=== PATIENT | female | born 1950 | race Caucasian/White ===

== ENCOUNTER 2019-06-14 09:08 | Emergency (ER) | payer MEDICARE, SELFPAY ==
--- NOTE | ~2019-06-14 | XR_ITS ---
EXAMINATION: XR chest 2V DATE: 06/14/2019 10:11 INDICATION: Cough. Chills. TECHNIQUE: Frontal and lateral views of the chest were obtained. COMPARISON: Chest 2 views 11/21/2017, CT abdomen and pelvis 11/29/2018 FINDINGS: There is chronic mild elevation of right hemidiaphragm. There are airspace opacities in lef t lower lobe with air bronchograms. No pleural effusion or pneumothorax. The heart size is normal. Gallo rgical clips in the right upper quadrant are likely from cholecystectomy. IMPRESSION: 1. Airspace opacities in left lower lobe, consistent with pneumonia. Reviewed, dictated and finalized at location A. UTIVE RELATIONS SPECIALIST
--- NOTE | 2019-06-14 09:28 | ED.GENADULT ---
HPI - General Adult General Chief complaint: Unspecified Stated complaint: v/d/bradford Time Seen by Provider: 06/14/19 09:24 Source: patient and RN notes reviewed History of Present Illness HPI narrative: Pt is a 68 y/o female presenting to the ED c/o cough. Pt reports she started experiencing a productive cough with yellow phlegm recently. Pt also reports BRADFORD, rt ear ache, ST, sinus pain, SOB, fatigue, chills, and generalized myalgia, but denies wheezing or CP. Pt states she did have N/D and diarrhea on 06/09 that resolved the next day. Pt notes she has Hx's of Asthma, PNA, and seasonal allergies. Pt denies any known positive sick contact. Onset (ago): unknown Associated symptoms: headaches, malaise, shortness of breath and other (Rt ear ache; ST; sinus pain; chills; generalized myalgia) Treatments prior to arrival: none Related Data Allergies Allergy/AdvReac Type Severity Reaction Status Date / Time hydrocodone Allergy Mild itching Verified 07/13/16 08:09 latex Allergy Unknown Other Verified 11/19/18 09:11 MOXIFLOXACIN HCL Allergy Unknown Nausea and Uncoded 11/19/18 09:11 Vomiting Review of Systems Review of Systems: All systems reviewed & are unremarkable except as noted in HPI and below Constitutional: Constitutional: Reports chills and Reports fatigue ENT: Reports otalgia (Rt), Reports sinus pain and Reports sore throat Cardiovascular: Cardiovascular: Denies chest pain Respiratory: Respiratory: Reports dyspnea and Denies wheezing Gastrointestinal: Gastrointestinal: Reports diarrhea (Resolved), Reports nausea (Resolved) and Reports vomiting (Resolved) Musculoskeletal: Musculoskeletal: Reports myalgias (Generalized) PMFSH Past Medical History Medical History Arm fracture Asthma Bronchitis Fibrocystic breast GERD (gastroesophageal reflux disease) Rectal polyp Surgical History Surgical History H/O mastectomy H/O tubal ligation History of History of cholecystectomy History of tonsillectomy Social History Social History Second hand tobacco smoke exposure: Yes Exam Const: General: healthy appearing, no acute distress and alert Nutritional Appearance: well nourished HENMT: Ears: TM's normal bilaterally and EAC's normal Mouth: Yes lip normal Eyes: Conjunctivae: conjunctivae normal Resp: Effort & Inspection: normal respiratory effort Auscultation: clear to auscultation bilaterally Cardio: Rate: regular rate Rhythm: regular rhythm Back/Spine/Pelvis: Other: Full ROM Skin: General skin exam: normal color Other: Warm; Dry Neuro: General: patient oriented x3 Speech: normal speech Extrem: General: full ROM Psych: Mental Status: mental status grossly normal Affect: normal affect Course Vital Signs Vital signs: Vital Signs Pulse Rate 108 H 06/14/19 09:31 Respiratory Rate 18 06/14/19 09:31 Blood Pressure 117/69 06/14/19 09:31 Pulse Oximetry 98 06/14/19 09:31 Temperature 36.6 C 06/14/19 12:26 Pulse Rate 76 06/14/19 12:26 Respiratory Rate 18 06/14/19 12:26 Blood Pressure 120/58 L 06/14/19 12:26 Pulse Oximetry 98 06/14/19 12:26 Medical Decision Making Differential Diagnosis Differential Diagnosis: Asthma exacerbation, Pneumonia, bronchitis, other Xray shows LLL infiltrate. Mild elevation in WBCs. She will need treatment for pneumonia. Breathing improved with nebulizer treatment. vitals and labs otherwise reassuring. She should be appropriate for outpatient tretar. Medical Records Medical records reviewed: Yes I reviewed the patient's medical records. Vital Signs Vital Signs: Vital Signs Pulse Rate 108 H 06/14/19 09:31 Respiratory Rate 18 06/14/19 09:31 Blood Pressure 117/69 06/14/19 09:31 Pulse Oximetry 98 06/14/19 09:31 Temperature 36.6 C 06/14/19 12:26 Pulse Rate 76 06/14/19 12:26 Respirat
--- NOTE | 2019-06-14 09:30 | PC.NURSE ---
Patient was taken to restroom on the way back to her room to provide urine sample
[2019-06-14 09:31] VITALS: BP 117/69; PULSE 108; RESP 18; O2SAT 98
[2019-06-14 09:39] VITALS: PULSE 80; RESP 20
[2019-06-14] MEDS: ALBUTEROL SULFATE NEB 2.5 MG/0.5 ML INH 5 MG INHALATION (09:50)
[2019-06-14 11:00] VITALS: BP 113/96; PULSE 76; RESP 20; O2SAT 96
[2019-06-14 11:28] LABS: Basophils Absolute Auto 0.1 K/mm3 (0.0-0.1); Basophils Percent Auto 0.4 % (0.2-1.2); Eosinophils Absolute Auto 0.1 K/mm3 (0-0.3); Eosinophils Percent Auto 0.9 % (0-4.4); Hematocrit 39.4 % (37.0-47.0); Hemoglobin 12.7 g/dL (12.0-15.0); Immature Granulocyte Absolute 0.05 K/mm3 (0.00-0.031); Immature Granulocyte Percent A 0.4 % (0-0.5); Lymphocytes Absolute Auto 1.05 K/mm3 (0.9-3.2); Lymphocytes Percent Auto 8.6 % (18.3-44.2); Mean Corpuscular HGB Conc 32.2 g/dl (32-36); Mean Corpuscular Hemoglobin 32.1 pg (26-34); Mean Corpuscular Volume 99.5 fl (80-100); Mean Platelet Volume 11.4 fl (7.4-10.4); Monocytes Absolute Auto 0.8 K/mm3 (0.1-0.6); Monocytes Percent Auto 6.5 % (2.6-8.5); Neutrophils Absolute Auto 10.2 K/mm3 (1.3-6.7); Neutrophils Percent Auto 83.2 % (45.5-73.1); Platelet Count Result 235 k/mm3 (150-375); Red Blood Count 3.96 M/mm3 (4.2-5.4); Red Cell Distribution Width 13.1 % (11.5-14.5); White Blood Count 12.3 K/mm3 (4.5-10.0)
[2019-06-14 11:59] LABS: Blood Urea Nitrogen 9 mg/dL (7-17); Calcium 8.5 mg/dL (8.4-10.2); Carbon Dioxide 27 mmol/L (22-30); Chloride 103 mmol/L (98-107); Estimated CRCL calculation 53 ml/min; Estimated Glomerular Filt Rate > 60; Glucose 111 mg/dL (65-105); Sodium 138 mmol/L (137-145)
[2019-06-14] MEDS: AMOXICILLIN/CLAVULANATE K 875-125 MG TAB 1 TABLET PO (12:15)
[2019-06-14] MEDS: AZITHROMYCIN 250 MG TABLET 500 MG PO (12:15)
[2019-06-14 12:16] VITALS: BP 114/56; PULSE 77; RESP 18; O2SAT 99
[2019-06-14 12:26] VITALS: BP 120/58; PULSE 76; RESP 18; TEMP 36.6; O2SAT 98
== END 2019-06-14 12:35 | disposition home or self-care (01) ==
PROVIDERS: Emergency Provider Emergency Medicine; PCP Emergency Medicine
DX: J18.1 Lobar pneumonia, unspecified organism (principal); J45.909 Unspecified asthma, uncomplicated; K21.9 Gastro-esophageal reflux disease without esophagitis; Z87.19 Personal history of other diseases of the digestive system
CPT/HCPCS: 36415; 71046; 80048; 85025; 87804; 94640; 99283; 99284; A9270

== ENCOUNTER 2019-11-25 13:46 | Outpatient (CLI) | payer MEDICARE, SELFPAY ==
--- NOTE | ~2019-11-25 | DEXA_ITS ---
Bone Density Report Name: Yamila Peter Age: 69 Sex: Female Ethnicity: White Date of : 1950 Indication: postmenopausal; parental hip fracture; height loss; asthma or emphysema; Referring Provider: LEXII VANCE Study: Bone densitometry was performed. Exam Date: November 25, 2019 Accession number: [id number] Bone Density: Region BMD T-score Z-score Classification AP Spine (L1-L4) 1.056 0.1 2.1 Normal Femoral Neck (Left) 0.651 -1.8 0.0 Osteopenia Total Hip (Left) 0.775 -1.4 0.1 Osteopenia Total Hip Bilateral Avg 0.784 -1.3 0.2 Osteopenia Femoral Neck (Right) 0.701 -1.3 0.4 Osteopenia Total Hip (Right) 0.793 -1.2 0.2 Osteopenia World Health Organization criteria for BMD impression classify patients as: Normal (T-score at or above -1.0), Osteopenia (T-score between -1.0 and -2.5), or Osteoporosis (T-score at or below -2.5). 10-year Fracture Risk(1): Major Osteoporotic Fracture 17% Hip Fracture 2.9% Reported Risk Factors: [place] (), Neck BMD=0.651, BMI=27.9, parental fracture (1) FRAX(R) Version 3.08. Fracture probability calculated for an untreated patient. Fracture probability may be lower if the patient has received treatment. Clinical Information Provided by Patient: Parent has had a hip fracture Has used the following medications: Vitamin D, Calcium Has the following medical conditions: Asthma or Emphysema Patient maximum height was 64.5 Menopause Age: 42 Drinks caffeinated beverages Onset of menses at age 13 Number of children 1 Impression: The patient has low bone mass, based on the Left Femoral Neck T-score. The patient has an estimated ten-year risk of hip fracture of 2.9% and an estimated ten-year risk of major fracture of 17%, based on the WHO FRAX algorithm. The patient has risk factors, including: parental hip fracture. Discussion: BONE DENSITY IS LOW AT ONE OR MORE SKELETAL SITES. This patient's lowest T-score is low at one or more skeletal sites. It meets the World Health Organization's (WHO) criteria for ?low bone mass? (T-score between -1.0 and -2.5). The patient's 10-year risk of fracture as calculated by FRAX is less than the threshold where pharmacological therapy is recommended by the National Osteoporosis Foundation (NOF). However, all treatment decisions require clinical judgment and consideration of individual patient factors, including patient preferences, comorbidities, previous drug use, risk factors not captured in the FRAX model (e.g., frailty, falls, vitamin D deficiency, increased bone turnover, interval significant decline in bone density) and possible under or overestimation of fracture risk by FRAX. The patient should follow a healthful lifestyle (good nutrition with adequate calcium and vitamin D, and appropriate weight-bearing exercise). Follow-U
== END 2019-11-25 13:47 | disposition home or self-care (01) ==
LOC: ANHIMG 13:47
PROVIDERS: PCP Emergency Medicine; Visit Provider Obstetrics & Gynecology Gynecology
DX: Z78.0 Asymptomatic menopausal state (principal); M85.852 Other specified disorders of bone density and structure, left thigh; M85.851 Other specified disorders of bone density and structure, right thigh
CPT/HCPCS: 77080

== ENCOUNTER 2020-08-01 08:24 | Emergency (ER) | payer MEDICARE, SELFPAY ==
--- NOTE | ~2020-08-01 | CT_ITS ---
CT chest high resolution w con DATE: 08/01/2020 10:50 INDICATION: Shortness of breath TECHNIQUE: High-resolution CT scan with 75 cc Omnipaque 350 intravenous contrast material. Exam dose: 131.92 mGy-cm total exam DLP. COMPARISON: 08/01/2020 2 view chest June 14, 2016 CT chest high resolution scan FINDINGS: Heart size is normal. No pericardial or pleural effusion. No thoracic aortic aneurysm or di ssection. There is old pulmonary granulomatous disease including calcified fibroadenomas. There is prominent focal consolidation anterior segment of the right upper lobe with air bronchograms . There is patchy areas of consolidation with air bronchograms in both lower lobes as well. Status post cholecystectomy. Occasional hepatic cysts. Prominent degenerative disease at C6-7 and C7-T1. No suspicious osteolytic or osteoblastic lesions are identified. IMPRESSION: Right upper and bilateral lower lobe patchy consolidation suggesting bilateral pneumonia Reviewed, dictated and finalized at Location A. Reviewed, dictated and finalized at location A. IMPRESSION: Right upper and bilateral lower lobe patchy consolidation suggestin g bilateral pneumonia
--- NOTE | ~2020-08-01 | XR_ITS ---
XR chest 2V DATE: 08/01/2020 08:53 INDICATION: Shortness of breath. History of asthma. Patient is recovering from food poisoning. TECHNIQUE: PA and lateral views COMPARISON: June 14, 2019 PA and lateral chest FINDINGS: Chronic moderate elevation of the right leaf of the diaphragm. There is evidence of patchy consolidation or mass density in the right upper lobe. There is mild bila teral lower lung infiltrate and/or atelectasis. Normal heart size. No pleural effusion or pulmonary vascular congestion or pneumothorax. Status post cholecystectomy. Thoracic and lumbar scoliosis. Diffuse osteopenia. IMPRESSION: Patchy consolidation or mass density, right upper lobe and bilateral lower lung infiltrat e and/atelectasis Continued short-term radiographic follow-up is recommended to ensure clearing and to exclude any poss ible pulmonary mass lesion Chronic moderate elevation right diaphragm Status post cholecystectomy Reviewed, dictated and finalized at location A. IMPRESSION: Patchy consolidation or mass density, right upper lobe and bilatera l lower lung infiltrate and/atelectasis Continued short-term radiographic follow-up is recommended to ensure clearing a nd to exclude any possible pulmonary mass lesion Chronic moderate elevation right diaphragm Status post cholecystectomy
[2020-08-01 08:30] VITALS: BP 120/57; PULSE 104; RESP 22; TEMP 36.9; O2SAT 98
[2020-08-01 10:38] LABS: Basophils Percent Auto 0.3 % (0.2-1.2); Hemoglobin 11.6 g/dL (12.0-15.0); Immature Granulocyte Absolute 0.14 K/mm3 (0.00-0.031); Immature Granulocyte Percent A 1.3 % (0-0.5); Lymphocytes Absolute Auto 0.29 K/mm3 (0.9-3.2); Lymphocytes Percent Auto 2.7 % (18.3-44.2); Mean Corpuscular HGB Conc 33.1 g/dl (32-36); Mean Corpuscular Hemoglobin 33.9 pg (26-34); Mean Corpuscular Volume 102.3 fl (80-100); Mean Platelet Volume 10.9 fl (7.4-10.4); Monocytes Absolute Auto 0.7 K/mm3 (0.1-0.6); Monocytes Percent Auto 6.9 % (2.6-8.5); Neutrophils Absolute Auto 9.4 K/mm3 (1.3-6.7); Neutrophils Percent Auto 88.8 % (45.5-73.1); Nucleated Red Blood Cells Perc 0.2 % (0.0-0.2); Platelet Count Result 203 k/mm3 (150-375); Red Blood Count 3.42 M/mm3 (4.2-5.4); Red Cell Distribution Width 13.9 % (11.5-14.5); White Blood Count 10.6 K/mm3 (4.5-10.0)
[2020-08-01 10:49] LABS: Alanine Aminotransferase 46 U/L (4-35); Albumin Level 3.5 g/dL (3.5-5.1); Alkaline Phosphatase 56 U/L (38-126); Anion Gap 6 mmol/L (8-16); Aspartate Amino Transferase 39 U/L (14-36); Bilirubin,Total 0.4 mg/dL (0.2-1.3); Blood Urea Nitrogen 9 mg/dL (7-17); Calcium 8.2 mg/dL (8.4-10.2); Carbon Dioxide 30 mmol/L (22-30); Chloride 104 mmol/L (98-107); Estimated CRCL calculation 59 ml/min; Estimated Glomerular Filt Rate > 60; Glucose 115 mg/dL (65-105); Potassium 3.6 mmol/L (3.4-5.0); Sodium 140 mmol/L (137-145)
[2020-08-01 10:50] LABS: Estimated CRCL calculation 59 ml/min; Estimated Glomerular Filt Rate > 60
[2020-08-01 11:24] VITALS: BP 120/62; PULSE 94; RESP 18; O2SAT 97
--- NOTE | 2020-08-01 12:20 | ED.URI ---
HPI - URI/Sore Throat General Chief Complaint: Upper Respiratory Infection Stated Complaint: COLD SX Time Seen by Provider: 08/01/20 08:30 Source: patient and family Mode of arrival: ambulatory History of Present Illness HPI Narrative: 69-year-old with a history of COPD, seasonal allergies here with complaints of cough for past few days. Patient states that she recently returned from [facility]. Patient states that she has been taking prednisone with no relief. No history of fever or chills. Cough is nonproductive. Denies any chest pain. MD elicited complaint: cough Onset (ago): day(s) (5) Consistency: constant Severity: moderate Exacerbating factors: nothing Relieving factors: nothing Associated symptoms: denies other symptoms Related Data Allergies Allergy/AdvReac Type Severity Reaction Status Date / Time hydrocodone Allergy Mild itching Verified 07/13/16 08:09 latex Allergy Unknown Other Verified 11/19/18 09:11 MOXIFLOXACIN HCL Allergy Unknown Nausea and Uncoded 11/19/18 09:11 Vomiting Review of Systems Review of Systems: All systems reviewed & are unremarkable except as noted in HPI and below Constitutional: Constitutional: Reports no additional constitutional complaints Eyes: Eyes: Reports no additional eye complaints ENT: Reports system reviewed and no additional complaints, except as documented Cardiovascular: Cardiovascular: Reports no additional cardiovascular complaints Respiratory: Respiratory: Reports as per HPI Gastrointestinal: Gastrointestinal: Reports no additional gastrointestinal complaints Musculoskeletal: Musculoskeletal: Reports no additional musculoskeletal complaints Integumentary/Breasts: Skin/Breast: Reports system reviewed and no additional complaints, except as docu Neurologic: Reports system reviewed and no additional complaints, except as documented PMFSH Past Medical History Medical History (Updated 08/01/20 @ 12:39 by Maik Agustin MD) Arm fracture Asthma Bronchitis Fibrocystic breast GERD (gastroesophageal reflux disease) Rectal polyp Surgical History Surgical History H/O mastectomy H/O tubal ligation History of History of cholecystectomy History of tonsillectomy Social History Social History Second hand tobacco smoke exposure: Yes Gender identity (if verbalized by the patient): Female Exam Narrative: Exam Narrative: GENERAL: Well-appearing, well-nourished, and in no acute distress. HEAD: Normocephalic, atraumatic. EYES: PERRLA and EOMI.. NECK: Supple. CHEST: Clear to auscultation. No respiratory distress. HEART: Regular rate and rhythm. No murmur heard. Normal peripheral pulses. ABDOMEN: Soft, nontender, nondistended, normal active bowel sounds. EXTREMITIES: Normal range of motion. No edema. SKIN: Warm, dry, no rash. NEURO: No focal deficits. Alert and oriented x3. PSYCH: Normal mood and affect. Course Course Emergency Course: Form patient about her lab work, CT findings. Patient states that she cannot take Avelox as it causes severe gastritis. Advised her to continue prednisone and continue other home medications. Will will start her on doxycycline. Vital Signs Vital signs: Vital Signs Temperature 36.9 C 08/01/20 08:30 Pulse Rate 104 H 08/01/20 08:30 Respiratory Rate 22 H 08/01/20 08:30 Blood Pressure 120/57 L 08/01/20 08:30 Pulse Oximetry 98 08/01/20 08:30 Temperature 36.9 C 08/01/20 08:30 Pulse Rate 94 08/01/20 11:24 Respiratory Rate 18 08/01/20 11:24 Blood Pressure 120/62 08/01/20 11:24 Pulse Oximetry 97 08/01/20 11:24 MDM - URI/Sore Throat Lab Data Result diagrams: 08/01/20 10:24 08/01/20 10:39 Labs: Lab Results 08/01/20 08/01/20 08/01/20 Range/Units 10:24 10:24 10:39 WBC 10.6 H (4.5-10.0) K/mm3 RBC 3.42 L (4.2-5.4) M/mm3 H
== END 2020-08-01 13:12 | disposition home or self-care (01) ==
PROVIDERS: Emergency Provider Family Medicine; PCP Emergency Medicine
DX: J18.9 Pneumonia, unspecified organism (principal); J44.9 Chronic obstructive pulmonary disease, unspecified; K21.9 Gastro-esophageal reflux disease without esophagitis; Z87.19 Personal history of other diseases of the digestive system; Z90.10 Acquired absence of unspecified breast and nipple; Z77.22 Contact with and (suspected) exposure to environmental tobacco smoke (acute) (chronic)
CPT/HCPCS: 36415; 71046; 71260; 80053; 85025; 99284; Q9967

== ENCOUNTER 2020-08-31 08:51 | Outpatient (CLI) | payer MEDICARE, SELFPAY ==
--- NOTE | ~2020-08-31 | XR_ITS ---
EXAMINATION: XR chest 2V DATE: 08/31/2020 09:05 INDICATION: Pneumonia TECHNIQUE: PA and lateral views of the chest are obtained. COMPARISON: 08/01/2020 FINDINGS: There has been interval decrease in size of the previously described masslike opacity right upper lobe. There is no pleural effusion or pneumothorax. The cardiomediastinal silhouette is normal . There is levocurvature of the thoracic spine. Surgical clips in the right upper quadrant are likely from prior cholecystectomy. IMPRESSION: 1. Near complete resolution of the previously described right upper lobe opacity, consistent with res olving pneumonia. Reviewed, dictated and finalized at location A. IMPRESSION: 1. Near complete resolution of the previously described right upper lobe opacit y, consistent with resolving pneumonia.
== END 2020-08-31 08:52 | disposition home or self-care (01) ==
LOC: ANHIMG 08:56
PROVIDERS: PCP Emergency Medicine; Visit Provider Emergency Medicine
DX: J18.9 Pneumonia, unspecified organism (principal)
CPT/HCPCS: 71046

== ENCOUNTER 2021-06-11 09:05 | Emergency (ER) | payer MEDICARE, SELFPAY ==
--- NOTE | ~2021-06-11 | XR_ITS ---
EXAMINATION: XR chest 1V portable EXAM DATE: 06/11/2021 10:50 INDICATION: fever, cough X 4 Days. Nonsmoker, Hx Asthma . TECHNIQUE: Frontal and lateral projections of the chest obtained and reviewed. Comparison is made to prior examination from 08/31/2020. FINDINGS: Segmental wedge-shaped right upper lobe airspace disease, appearance is most consistent wi th focal bacterial pneumonia. Please clinically correlate. Follow-up recommended in one month to excl ude any underlying chronic process. There are cholecystectomy clips. Mild thoracolumbar scoliosis. IMPRESSION: Segmental right upper lobe airspace disease probably pneumonia. Follow-up recommended. Reviewed, dictated and finalized at location B. ICIAN ASST IMPRESSION: Segmental right upper lobe airspace disease probably pneumonia. Fo llow-up recommended.
[2021-06-11 09:24] VITALS: BP 140/68; PULSE 99; RESP 22; TEMP 36.6; O2SAT 99
[2021-06-11 10:56] VITALS: BP 123/71; PULSE 82; RESP 13; O2SAT 98
[2021-06-11 10:59] VITALS: PULSE 72
[2021-06-11 11:00] LABS: Basophils Absolute Auto 0.1 K/mm3 (0.0-0.1); Basophils Percent Auto 0.9 % (0.2-1.2); Eosinophils Absolute Auto 0.3 K/mm3 (0-0.3); Eosinophils Percent Auto 4.4 % (0-4.4); Hematocrit 39.3 % (37.0-47.0); Immature Granulocyte Absolute 0.02 K/mm3 (0.00-0.031); Immature Granulocyte Percent A 0.3 % (0-0.5); Lymphocytes Absolute Auto 0.68 K/mm3 (0.9-3.2); Lymphocytes Percent Auto 9.7 % (18.3-44.2); Mean Corpuscular HGB Conc 33.1 g/dl (32-36); Mean Corpuscular Hemoglobin 33.3 pg (26-34); Mean Corpuscular Volume 100.8 fl (80-100); Mean Platelet Volume 10.5 fl (7.4-10.4); Monocytes Absolute Auto 0.5 K/mm3 (0.1-0.6); Monocytes Percent Auto 7.7 % (2.6-8.5); Neutrophils Absolute Auto 5.4 K/mm3 (1.3-6.7); Platelet Count Result 214 k/mm3 (150-375); Red Cell Distribution Width 12.8 % (11.5-14.5)
[2021-06-11 11:05] LABS: Add Urine Microscopic? YES; Appearance Urine Clear (Clear); Bilirubin Urine Negative (Negative); Blood Urine 2+ (Negative); Color Urine Yellow (Yellow); Glucose Urine UA Negative (Negative); Ketones Urine Trace mg/dL (Negative); Leukocyte Esterase Ur Negative LEU/UL (Negative); Nitrate Urine Negative (Negative); Protein Urine Negative (Negative); Specific Grav Ur 1.015 (1.001-1.035); WBC Urine 0-3 /hpf
[2021-06-11 11:09] LABS: INR 1.1; Lactic Acid Reflex 1.1 mmol/L (0.7-2.1); Prothrombin Time 14.2 Seconds (11.1-14.7)
[2021-06-11 11:10] LABS: Partial Thromboplastin Time 37.3 SECONDS (22.3-36.8)
[2021-06-11 11:17] LABS: Alanine Aminotransferase 21 U/L (4-35); Albumin Level 4.2 g/dL (3.5-5.1); Alkaline Phosphatase 58 U/L (38-126); Anion Gap 11 mmol/L (8-16); Aspartate Amino Transferase 29 U/L (14-36); Bilirubin,Total 0.6 mg/dL (0.2-1.3); Blood Urea Nitrogen 12 mg/dL (7-17); Calcium 8.8 mg/dL (8.4-10.2); Carbon Dioxide 26 mmol/L (22-30); Chloride 99 mmol/L (98-107); Estimated CRCL calculation 49 ml/min; Estimated Glomerular Filt Rate > 60; Glucose 116 mg/dL (65-110); Lactate Dehydrogenase 317 U/L (313-618); Lipase 58 U/L (23-300); Potassium 3.6 mmol/L (3.4-5.0); Sodium 136 mmol/L (137-145)
--- NOTE | 2021-06-11 11:19 | ED.SOB ---
HPI - SOB/Dyspnea General Chief Complaint: Shortness of Breath/Dyspnea Stated Complaint: covid symptoms Time Seen by Provider: 06/11/21 10:39 Source: patient Mode of arrival: ambulatory Limitations: no limitations History of Present Illness HPI Narrative: This is a 70 year old female that presents to the ER for cold symptoms present over the last 4 days. Reports she started to have nausea and vomiting. Then she noted chills, headache, cough and congestion. She is COVID and influenza vaccinated. Reports shortness of breath and the cough is making her asthma flare. Reports chest pain with coughing. Denies lower extremity edema. Related Data Home Medications Medication Instructions Recorded Confirmed albuterol sulfate INHALATION 06/11/21 estradiol-norethindrone acet tablet 06/11/21 fluticasone furoate-vilanterol INHALATION 06/11/21 [Breo Ellipta] pantoprazole PO 06/11/21 Allergies Allergy/AdvReac Type Severity Reaction Status Date / Time hydrocodone Allergy Mild itching Verified 06/11/21 10:59 latex Allergy Unknown Other Verified 06/11/21 10:59 MOXIFLOXACIN HCL Allergy Unknown Nausea and Uncoded 06/11/21 10:59 Vomiting Review of Systems Review of Systems: CONSTITUTIONAL: Reports fever ENT: Reports congestion CARDIOVASCULAR: Reports chest pain. Denies edema. RESPIRATORY: Denies cough or dyspnea. GASTROINTESTINAL: Reports nausea, vomiting All systems reviewed & are unremarkable except as noted in HPI and below PMFSH Past Medical History Medical History (Updated 06/11/21 @ 13:35 by Tg Garnett PA-C) Arm fracture Asthma Bronchitis Fibrocystic breast GERD (gastroesophageal reflux disease) Rectal polyp Surgical History Surgical History H/O mastectomy H/O tubal ligation History of History of cholecystectomy History of tonsillectomy Social History Social History Second hand tobacco smoke exposure: Yes Gender identity (if verbalized by the patient): Female Exam Narrative: GENERAL: Well-appearing, well-nourished, and in no acute distress. HEAD: Normocephalic, atraumatic. EYES: EOMI. ENT: Nares clear, no rhinorrhea or epistaxis. Mucous membranes moist. Oropharynx without tonsillar hypertrophy exudate or other lesions. Bilateral TMs pearly roth non-bulging NECK: Supple. No adenopathy or masses. CHEST: Clear to auscultation. No respiratory distress. No wheezes rales or rhonchi HEART: Regular rate and rhythm. No murmur heard. Normal peripheral pulses. EXTREMITIES: Normal range of motion. No edema. SKIN: Warm, dry, no rash. NEURO: No focal deficits. Alert and oriented x3. PSYCH: Normal mood and affect Course Vital Signs Vital signs: Vital Signs Temperature 97.8 F 06/11/21 09:24 Pulse Rate 99 06/11/21 09:24 Respiratory Rate 22 H 06/11/21 09:24 Blood Pressure 140/68 06/11/21 09:24 Pulse Oximetry 99 06/11/21 09:24 Temperature 97.8 F 06/11/21 09:24 Pulse Rate 65 06/11/21 12:34 Respiratory Rate 18 06/11/21 12:34 Blood Pressure 109/63 06/11/21 12:34 Pulse Oximetry 95 06/11/21 12:34 MDM - SOB/Dyspnea MDM Narrative Medical decision making narrative: Patient presents to the emergency department for cold symptoms ongoing over the last 4 days. She is afebrile and nontoxic-appearing. Oxygen saturation has remained normal on room air. Vitals are stable. CBC is without leukocytosis. Lactic acid is not elevated. UA without evidence of infection. Covid and influenza swabs are negative. D-dimer elevated, but age-adjusted it is not elevated. Chest x-ray shows a right upper lobe airspace opacity consistent with pneumonia. Patient will be started on antibiotics and a couple more days of steroid for asthma exacerbation associated with this. She is stable and felt appropriate for further outpatient evaluation. She was given warnings to return to the E
[2021-06-11 11:49] LABS: D Dimer 0.64 ug/mL (<0.48)
[2021-06-11 11:53] LABS: CRP 14.6 mg/dL (<1.0)
[2021-06-11 11:56] LABS: Troponin I < 0.012 ng/mL (0.000-0.034)
[2021-06-11] MEDS: predniSONE 20 MG TABLET 40 MG PO (12:02)
[2021-06-11 12:34] VITALS: BP 109/63; PULSE 65; RESP 18; O2SAT 95
[2021-06-11 13:19] LABS: Influenza A QL RT-PCR Negative (Negative); Influenza B QL RT-PCR Negative (Negative)
[2021-06-11 13:29] LABS: SARS-CoV-2 RNA PCR Negative
[2021-06-11 14:17] VITALS: BP 107/60; PULSE 70; RESP 16; O2SAT 95
== END 2021-06-11 14:18 | disposition home or self-care (01) ==
PROVIDERS: Physician Assistant; Emergency Provider Emergency Medicine; PCP Emergency Medicine
DX: J18.9 Pneumonia, unspecified organism (principal); J45.901 Unspecified asthma with (acute) exacerbation; Z20.822 Contact with and (suspected) exposure to COVID-19; K21.9 Gastro-esophageal reflux disease without esophagitis; Z87.19 Personal history of other diseases of the digestive system; Z90.10 Acquired absence of unspecified breast and nipple; N60.19 Diffuse cystic mastopathy of unspecified breast; Z77.22 Contact with and (suspected) exposure to environmental tobacco smoke (acute) (chronic)
CPT/HCPCS: 36415; 71045; 80053; 81001; 82728; 83605; 83615; 83690; 84484; 85025; 85380; 85610; 85730; 86140; 87502; 96365; 96367; 99284; C9803; J0131; J0456; J0696; J7512; U0003; U0005

== ENCOUNTER 2021-07-28 09:03 | Outpatient (CLI) | payer MEDICARE, SELFPAY ==
--- NOTE | ~2021-07-28 | XR_ITS ---
XR chest 2V DATE: 07/28/2021 09:16 INDICATION: Pneumonia in June 2021. History of asthma. TECHNIQUE: PA and lateral views COMPARISON: June 11, 2021 portable AP chest 09/17/2020 PA and lateral chest FINDINGS: There is minimal residual infiltrate or atelectasis in the right upper lobe anterior segmen t, along the superior margin of the minor fissure, with considerable improvement of right upper lobe infiltrate since June 11, 2021. Mild to moderate elevation right leaf of diaphragm is again noted, chronic. Normal heart size. No hilar or mediastinal enlargement. No pleural effusion or pulmonary vascular congestion or pneumothorax. Status post cholecystectomy. Thoracic scoliosis. Osteopenia. IMPRESSION: Mild residual infiltrate or atelectasis, anterior segment, right upper lobe, significantl y improved since June 11, 2021 Reviewed, dictated and finalized at location A. IMPRESSION: Mild residual infiltrate or atelectasis, anterior segment, right up per lobe, significantly improved since June 11, 2021
== END 2021-07-28 09:04 | disposition home or self-care (01) ==
LOC: ANHIMG 09:06
PROVIDERS: PCP Emergency Medicine; Visit Provider Emergency Medicine
DX: J18.9 Pneumonia, unspecified organism (principal); R91.8 Other nonspecific abnormal finding of lung field
CPT/HCPCS: 71046

== ENCOUNTER 2022-01-06 09:36 | Outpatient (CLI) | payer MEDICARE, SELFPAY ==
--- NOTE | ~2022-01-06 | CT_ITS ---
EXAMINATION: CT chest high resolution [place] DATE: 01/06/2022 09:58 INDICATION: Chronic cough TECHNIQUE: Computed tomography (CT) of the chest was performed without intravenous contrast. The dose -length product (DLP) was 137.23 mGy-cm. Automated exposure control and iterative reconstruction tech [employer] were employed. COMPARISON: 08/01/2020 FINDINGS: The lungs are free of acute opacities. No pleural effusion or pneumothorax. No pathological ly enlarged thoracic lymph nodes are identified. The heart size is normal. Calcified pulmonary nodule s and calcified right hilar lymph nodes are consistent with old granulomatous disease. The gallbladde r is surgically absent. There is mild thoracic spondylosis. IMPRESSION: 1. No CT correlate for the patient's symptoms. Reviewed, dictated and finalized at location B.
== END 2022-01-06 09:37 | disposition home or self-care (01) ==
PROVIDERS: PCP Emergency Medicine
DX: R05.3 Chronic cough (principal)
CPT/HCPCS: 71250

== ENCOUNTER 2022-01-19 07:44 | Outpatient (CLI) | payer MEDICARE, SELFPAY ==
--- NOTE | ~2022-01-19 | CT_ITS ---
EXAMINATION: CT abdomen pelvis wo/w con DATE: 01/19/2022 08:28 INDICATION: Microhematuria TECHNIQUE: Computed tomography (CT) of the abdomen and pelvis was performed without and subsequently with 130 CC Omnipaque 350 intravenous contrast. Automated exposure control and iterative reconstructi on technique were employed. Exam dose: 970.94 mGy-cm total exam DLP. COMPARISON: 01/19/2022 KUB 11/29/2018 CT abdomen pelvis FINDINGS: The lung bases are clear of infiltrate or consolidation. Normal heart size. No pericardial or pleural effusion. There is hepatic flexure interposition between the diaphragm and liver. Status post cholecystectomy. No bile duct or pancreatic duct dilatation. Normal splenic size. Normal morphology of the adrenal glands. No renal mass lesion is detected. There is an approximately 3 x 5.3 mm nonobstructing calculus of the lower pole of the left kidney. No other urinary tract calculus is noted. The urinary bladder, uterus and adnexal areas are unremarkabl e. Normal caliber of the abdominal aorta with mild atherosclerotic calcification. No intraperitoneal or retroperitoneal or pelvic mass lesion or adenopathy or ascites. Normal appendix. Diverticulosis of the sigmoid colon; no CT evidence of diverticulitis. No bowel obstruction, bowel wa ll thickening, pneumatosis or intraperitoneal free air. Moderate loss of interspace height at L3-4 and L4-5. No suspicious osteolytic or osteoblastic lesions are noted. IMPRESSION: Nonobstructing lower pole left renal calculus Normal appendix Diverticulosis of sigmoid colon; no CT evidence of diverticulitis Status post cholecystectomy Reviewed, dictated and finalized at Location A. Reviewed, dictated and finalized at location B.
--- NOTE | ~2022-01-19 | XR_ITS ---
XR abdomen/kub 1V 01/19/2022 08:07 Indication: Microscopic hematuria Procedure: KUB Comparison: CT dated 01/19/2022 Findings: There is ar 5 mm stone in the lower pole of the left kidney. There are cholecystectomy clip s. Bowel gas pattern is nonobstructive. There are pelvic phleboliths. Mild dextroscoliosis of the tho racolumbar spine, partially visualized. Impression: 1: Left nephrolithiasis. Reviewed, dictated and finalized at location A. Impression: 1: Left nephrolithiasis.
[2022-01-19 08:12] LABS: Estimated Glomerular Filt Rate > 60
== END 2022-01-19 07:45 | disposition home or self-care (01) ==
PROVIDERS: PCP Emergency Medicine; Visit Provider Urology
DX: R31.29 Other microscopic hematuria (principal); N20.0 Calculus of kidney; K57.30 Diverticulosis of large intestine without perforation or abscess without bleeding; Z90.49 Acquired absence of other specified parts of digestive tract
CPT/HCPCS: 74018; 74178; Q9967

== ENCOUNTER → 2022-06-22 09:41 | Outpatient (CLI) | payer MEDICARE, SELFPAY ==
--- NOTE | ~2022-06-22 | CT_ITS ---
EXAMINATION: CT sinus wo con DATE: 06/22/2022 09:53 INDICATION: Chronic sinusitis TECHNIQUE: Computed tomography (CT) of the paranasal sinuses was performed without intravenous contra st. The dose-length product was 270.28 mGy-cm. COMPARISON: 06/14/2016 FINDINGS: There is mucosal thickening of the ethmoid sinuses with air-fluid levels. There is a mucous retention cyst of the right maxillary sinus. There is leftward nasal septal deviation. Small bilater al mastoid effusions. Leftward nasal septal deviation. Ostiomeatal units are patent. IMPRESSION: 1. Mild ethmoid sinusitis. Mucous retention cyst right maxillary antrum. Reviewed, dictated and finalized at location B. TRAFFIC MANAGER
== END ==
PROVIDERS: PCP Emergency Medicine; Visit Provider Otolaryngology
DX: J32.2 Chronic ethmoidal sinusitis (principal)
CPT/HCPCS: 70486

== ENCOUNTER 2022-06-27 09:27 | Emergency (ER) | payer MEDICARE, SELFPAY ==
--- NOTE | ~2022-06-27 | CT_ITS ---
EXAMINATION: CT soft tissue neck wo con DATE: 06/27/2022 10:42 INDICATION: Foreign body in throat. TECHNIQUE: Computed tomography (CT) of the neck was performed without intravenous contrast. Automated exposure control and iterative reconstruction technique were employed. The dose-length product was 4 77.57 mGy-cm. COMPARISON: Neck radiographs 06/27/2022 FINDINGS: There are no pathologically enlarged lymph nodes. There is a mucous retention cyst in right maxillary sinus. There is mild mucosal thickening in the paranasal sinuses. The mastoid air cells ar e normal. There is severe cervical spondylosis. IMPRESSION: 1. No foreign body. Reviewed, dictated and finalized at location A. E CUTTING SUPERVISOR IMPRESSION: 1. No foreign body.
--- NOTE | ~2022-06-27 | XR_ITS ---
XR soft tissue neck 06/27/2022 10:09 Indication: Possible foreign body in throat. Procedure: 3 views of the neck soft tissues Comparison: 03/19/2013 Findings: No prevertebral soft tissue abnormality. The epiglottis and area epiglottic folds are laura l. No significant abnormality of the adenoids or lingual tonsils. There are coarse thyroid cartilage calcifications. No foreign bodies are identified. No significant subglottic narrowing. Moderate cervi soledad spondylosis. Lung apices are normal. Impression: 1: No evidence for radiopaque foreign body. Reviewed, dictated and finalized at location B. SIT PLANNER Impression: 1: No evidence for radiopaque foreign body.
[2022-06-27 09:34] VITALS: BP 99/64; PULSE 71; RESP 18; TEMP 36.4; O2SAT 99
[2022-06-27 09:36] VITALS: BP 141/67; PULSE 68; RESP 18; TEMP 36.7; O2SAT 99
--- NOTE | 2022-06-27 09:51 | ED.SKABFB ---
HPI - Skin/Abscess/Foreign Bdy General Chief complaint: Skin/Abscess/Foreign Body Stated complaint: foreign body throat Time Seen by Provider: 06/27/22 09:37 Source: patient Mode of arrival: ambulatory Limitations: no limitations History of Present Illness HPI narrative: This is a 71-year-old female that presents to the emergency department for a possible foreign body in her throat. Reports when she woke up yesterday she had the sensation that there was something stuck in her throat. At lunchtime she was eating and one of her teeth fell out. Reports she has a bridge of her left lower molars and part of it is missing. She has continued to have sensation of foreign body. She has been able to eat and drink. Denies fever or sore throat. Related Data Home Medications Medication Instructions Recorded Confirmed albuterol sulfate 90 mcg/actuation inhalation 06/11/21 aerosol inhaler estradiol-norethindrone acet 1 tablet 06/11/21 mg-0.5 mg tablet fluticasone furoate 200 inhalation 06/11/21 mcg-vilanterol 25 mcg/dose inhalation powder (Breo Ellipta) pantoprazole 40 mg tablet,delayed PO 06/11/21 release Allergies Allergy/AdvReac Type Severity Reaction Status Date / Time hydrocodone Allergy Mild itching Verified 06/27/22 09:40 latex Allergy Unknown Other Verified 06/27/22 09:40 MOXIFLOXACIN HCL Allergy Unknown Nausea and Uncoded 06/27/22 09:40 Vomiting Review of Systems Review of Systems: CONSTITUTIONAL: Denies fever ENT: Denies sore throat, or dysphagia CARDIOVASCULAR: Denies chest pain RESPIRATORY: Denies dyspnea. GASTROINTESTINAL: Denies nausea, vomiting All systems reviewed & are unremarkable except as noted in HPI and below PMFSH Past Medical History Medical History (Updated 06/27/22 @ 10:56 by Tg Garnett PA-C) Arm fracture Asthma Bronchitis Fibrocystic breast GERD (gastroesophageal reflux disease) Rectal polyp Surgical History Surgical History H/O mastectomy H/O tubal ligation History of History of cholecystectomy History of tonsillectomy Social History Social History Second hand tobacco smoke exposure: Yes Gender identity (if verbalized by the patient): Female Exam Narrative: GENERAL: Well-appearing, well-nourished, and in no acute distress. HEAD: Normocephalic, atraumatic. EYES: EOMI. ENT: Nares clear, no rhinorrhea or epistaxis. Mucous membranes moist. Oropharynx without tonsillar hypertrophy exudate or other lesions. NECK: Supple. No adenopathy or masses. CHEST: Clear to auscultation. No respiratory distress. HEART: Regular rate and rhythm. EXTREMITIES: Normal range of motion. No edema. SKIN: Warm, dry, no rash. NEURO: No focal deficits. Alert and oriented x3. PSYCH: Normal mood and affect Course Course Emergency Course: Patient was updated on work-up and agrees with plan of care. Vital Signs Vital signs: Vital Signs Temperature 97.6 F 06/27/22 09:34 Pulse Rate 71 06/27/22 09:34 Respiratory Rate 18 06/27/22 09:34 Blood Pressure 99/64 L 06/27/22 09:34 Pulse Oximetry 99 06/27/22 09:34 Oxygen Delivery Room Air 06/27/22 09:34 Temperature 98.1 F 06/27/22 09:36 Pulse Rate 68 06/27/22 09:36 Respiratory Rate 18 06/27/22 09:36 Blood Pressure 141/67 H 06/27/22 09:36 Pulse Oximetry 99 06/27/22 09:36 Oxygen Delivery Room Air 06/27/22 09:36 MDM - Skin/Abscess/Foreign Bdy MDM Narrative Medical decision making narrative: Patient presents to the emergency department for a possible body in her throat. Reports she has had this sensation since yesterday. She is able to tolerate oral secretions. She has been able to eat and drink normally without any nausea or vomiting. Her airway is clear. I do not appreciate any foreign bodies on exam. X-ray soft tissue was obtained without evidence of foreign body.
[2022-06-27 11:10] VITALS: BP 120/69; PULSE 72; RESP 16; O2SAT 100
== END 2022-06-27 11:10 | disposition home or self-care (01) ==
PROVIDERS: Emergency Provider Physician Assistant; PCP Emergency Medicine
DX: R09.89 Other specified symptoms and signs involving the circulatory and respiratory systems (principal); J45.909 Unspecified asthma, uncomplicated; K21.9 Gastro-esophageal reflux disease without esophagitis
CPT/HCPCS: 70360; 70490; 99284

== ENCOUNTER 2022-08-15 08:48 | Outpatient (CLI) | payer MEDICARE, SELFPAY ==
--- NOTE | ~2022-08-15 | XR_ITS ---
Supine and upright views of the abdomen Clinical history: Renal stone COMPARISON: 01/19/2022 Findings: Bowel gas pattern is nonspecific. No evidence for obstruction or free air. Possible 4 mm le ft lower pole renal stone. Evaluation of the kidneys is somewhat suboptimal due to extensive bowel co ntents. Cholecystectomy clips noted. Osseous structures are intact. Impression: Suspected 4 mm left lower pole renal stone. Reviewed, dictated and finalized at location . Impression: Suspected 4 mm left lower pole renal stone.
== END 2022-08-15 08:49 | disposition home or self-care (01) ==
PROVIDERS: PCP Emergency Medicine; Visit Provider Urology
DX: N20.0 Calculus of kidney (principal)
CPT/HCPCS: 74018

== ENCOUNTER 2022-10-14 13:06 | Outpatient (CLI) | payer MEDICARE, SELFPAY ==
--- NOTE | 2022-10-14 13:39 | ECG_ITS ---
Measurements Intervals [place] Rate: 68 P: -47 HI: 116 QRS: -32 QRSD: 87 T: 10 QT: 392 QTc: 417 Interpretive Statements SINUS RHYTHM WITH SHORT HI INTERVAL BASELINE ARTIFACT LEFT AXIS DEVIATION CANNOT RULE ANTERIOR MYOCARDIAL INFARCTION, OF INDETERMINATE AGE ABNORMAL ECG NO PREVIOUS ECG AVAILABLE FOR COMPARISON Electronically Signed On 10-14-2022 15:12:16 CDT by Tan Palencia M.D.
[2022-10-14 14:31] LABS: Partial Thromboplastin Time 32.5 SECONDS (22.3-36.8); Prothrombin Time 13.9 Seconds (11.1-14.7)
== END 2022-10-14 13:07 | disposition home or self-care (01) ==
PROVIDERS: PCP Emergency Medicine; Visit Provider Urology
DX: N20.0 Calculus of kidney (principal); E78.00 Pure hypercholesterolemia, unspecified; Z01.818 Encounter for other preprocedural examination; R94.31 Abnormal electrocardiogram [ECG] [EKG]
CPT/HCPCS: 36415; 85610; 85730; 87086; 93005

== ENCOUNTER 2022-10-21 02:44 | Day surgery (SDC) | payer MEDICARE, SELFPAY ==
--- NOTE | 2022-10-14 08:17 | PC.NURSE ---
Report to the Outpatient Waiting Room, entrance under the green pavilion located off [facility], at time _0600 on date _10/21/22 . Planned Procedure Time: _0730 . Time changes happen often and if your time is changed the preop area will call you the afternoon before. - You and your visitor will be asked to self-screen and do not enter if you have any COVID symptoms. - A mask is optional within the hospital at this time. Patients may have clear liquids (water, carbonated beverages, clear teas, apple juice) until 3 hours prior to surgery with a maximum of 20 ounces. - No food from midnight until time of surgery - Infants may have breast milk until 4 hours before surgery, formula 6 hours prior to surgery. - Children will be allowed to drink immediately following surgery. If applicable, please bring a bottle or sippy cup to assist with drinking. Juice, water, soda, and popsicles are readily available. For infants on formula, please bring formula the day of surgery. Pacifiers are allowed. Take the following medications with a SIP of water the morning of surgery: _TRELEGY INHALER DO NOT STOP ANY OF YOUR OTHER PRESCRIPTION MEDICATIONS PRIOR TO SURGERY ?EXCEPT THE FOLLOWING Medications to discontinue per physician __ALL VITAMINS/SUPPLEMENTS 3 DAYS PRE OP.LAST DOSE 10/18/22 Please no make-up, nail bengali, hairspray, perfume, deodorant, or body powder the day of surgery. No jewelry (including any body piercings) or valuables the day of surgery, leave them at home. Please take a shower or bath the night before, or the morning of, surgery with an antibacterial soap. Wear comfortable, loose fitting clothing. Children are encouraged to wear pajamas. - Jewelry must be removed prior to entering the operating room. Rings and piercings that are not removed may be cut off. - The hospital will not accept responsibility for valuables. - Please leave all valuables, including medications, at home the day of surgery. If you are going home after surgery, a licensed car pick up driver must drive you home. - NO public transportation without another adult if you receive anesthesia. - We recommend that an adult stay with you for 24 hours following discharge. - We also recommend that you do not drive, make important decision, drink alcoholic beverages, or take any drugs that were not prescribed by your health care provider for at least 24 hours after your discharge time. For Pediatric surgeries, we recommend two adults accompany the child home. Follow any additional instructions given to you from your surgeon. If you or anyone in your household have experienced Covid symptoms in the past week, please notify your surgeon or the nurse liaison at the phone number below for possible testing. Telephone instructions given to ___PATIENT and asked if any additional questions and then verbalized understanding. Patient advised to call surgeon office or pre surgery nurse liaison [phone] if any additional questions.
--- NOTE | 2022-10-14 09:11 | SUR.PREOP ---
Paper documentation exists on this patient due to [employer] downtime on 10/12/22
[2022-10-21] VITALS (7 sets, daily range): BP systolic 104–147; BP diastolic 58–72; PULSE 58–71; RESP 16–18; TEMP 36.1–36.4; O2SAT 99–100; BMI 27.4
--- NOTE | ~2022-10-21 | XR_ITS ---
Supine and upright views of the abdomen Clinical history: Lithotripsy COMPARISON: 08/15/2022 Findings: Bowel gas pattern is nonspecific. No evidence for obstruction or free air. 4 mm left lower pole renal stone noted. Osseous structures are intact. Impression: 4 mm left lower pole renal stone. Reviewed, dictated and finalized at [facility]. Impression: 4 mm left lower pole renal stone.
--- NOTE | 2022-10-21 06:39 | WPDANESEPPF ---
Anes - Initial Pre Proc Eval Procedure: Operation Date: 10/21/22 07:30 Proposed Procedures p Left Renal Extracorporeal Shock Wave Lithotripsy - Silverio Granda MD Date/Time: 10/21/22 06:39 Surgeon: Silverio Granda MD Pre Op Diagnosis: Lt Kidney Stone Patient Data Age: 71 Gender: F Height: 1.63 m Weight: 72.57 kg Allergies Allergy/AdvReac Type Severity Reaction Status Date / Time hydrocodone Allergy Mild itching Verified 06/27/22 09:40 latex Allergy Unknown Other Verified 06/27/22 09:40 MOXIFLOXACIN HCL Allergy Unknown Nausea and Uncoded 06/27/22 09:40 Vomiting Home Medications Medication Instructions Recorded Confirmed Type albuterol sulfate 90 mcg/actuation 2 inh inhalation PRN PRN Shortness 06/11/21 10/20/22 History aerosol inhaler Of Breath Lactobacillus 1 cap PO DAILY 10/20/22 10/20/22 History acidophilus-Bifidobac.animalis 2.5 billion cell capsule (Daily Probiotic) ascorbic acid (vitamin C) 500 mg 500 mg PO DAILY 10/20/22 10/20/22 History tablet azelastine 137 mcg (0.1 %) nasal 2 spray intranasal BID 10/20/22 10/20/22 History spray aerosol biotin 5,000 mcg chewable tablet 5,000 mcg PO DAILY 10/20/22 10/20/22 History calcium 600 mg capsule 600 mg PO DAILY 10/20/22 10/20/22 History cetirizine 10 mg capsule (Zyrtec) 10 mg PO DAILY 10/20/22 10/20/22 History cholecalciferol (vitamin D3) 100 100 mcg PO DAILY 10/20/22 10/20/22 History mcg (4,000 unit) tablet cranberry fruit concentrate 250 mg 500 mg PO BID 10/20/22 10/20/22 History chewable tablet (Azo Cranberry) cyclosporine 0.05 % eye drops in a 1 drp EACH EYE BID 10/20/22 10/20/22 History dropperette (Restasis) estradiol-norethindrone acet 1 1 tablet PO DAILY 10/20/22 10/20/22 History mg-0.5 mg tablet (Activella) fluticasone fur. 200 mcg-umeclid 1 inh inhalation DAILY 10/20/22 10/20/22 History 62.5 mcg-vilant 25 mcg inhalat.powder (Trelegy Ellipta) fluticasone propionate 50 2 spray intranasal DAILY 10/20/22 10/20/22 History mcg/actuation nasal spray,suspension (Flonase Allergy Relief) folic acid 400 mcg tablet 0.4 mg PO DAILY 10/20/22 10/20/22 History guaifenesin 1,200 mg tablet, 1,200 mg PO BID 10/20/22 10/20/22 History extended release 12 hr (Mucinex) pantoprazole 40 mg tablet,delayed 40 mg PO QAM 10/20/22 10/20/22 History release (Protonix) potassium 99 mg tablet 99 mg PO DAILY 10/20/22 10/20/22 History rosuvastatin 5 mg tablet 5 mg PO DAILY 10/20/22 10/20/22 History Patient hx anesthesia problems: none Family hx anesthesia problems: none Results Review: All pre-operative results and documents have been reviewed as part of the pre-operative evaluation. [facility] Past Medical History Medical History Arm fracture Asthma Bronchitis Fibrocystic breast GERD (gastroesophageal reflux disease) Rectal polyp Surgical History Surgical History (Updated 10/21/22 @ 06:40 by Vidal Bansal MD) H/O tubal ligation History of History of cholecystectomy Social History Social History Second hand tobacco smoke exposure: Yes Gender identity (if verbalized by the patient): Female Anes - Eval Final PreProcedure Day of Procedure 10/21/22 06:39 Patient weight: overweight Heart: regular rate and rhythm Lungs: clear to auscultation Airway: Mallampati scale class II and special considerations poor opening Neurological: alert and oriented ASA classification: II Emergent: yes Anesthetic plan: proceed Anesthesia type and monitoring: general LMA and standard monitoring Results Review: All pre-operative results and documents have been reviewed as part of the pre-operative evaluation. Informed Consent: The patient's anesthetic plan and its attendant risks and benefits were discussed with the patient/family/POA. Questions were solicited and answers provi
[2022-10-21] MEDS: LACTATED RINGERS 1,000 ML 30 ML IV CONT ×2 (06:52→08:11)
--- NOTE | 2022-10-21 07:19 | WPDHPUPDATE1 ---
History and Physical Update Update Date/Time: 10/21/22 07:19 History and Physical has been reviewed, including an updated exam of the patient. There are NO changes in the patient's condition. Risks, benefits, and alternatives have been discussed and questions answered. Patient agrees to proceed with procedure. Proceed with eswl of left renal calculus
[2022-10-21] MEDS: ceFAZolin 2 GM/D5W 50 ML 2 GM/50 ML BAG IVPB (07:25)
--- NOTE | 2022-10-21 08:00 | W.PM.PROC2 ---
Procedure Note - Detailed Date of Procedure 10/21/22 Pre-op Diagnosis Lt Kidney Stone Post-op Diagnosis Same Procedure Performed Lithotripsy of left renal calculus 4 -5mm Surgeon Silverio Granda MD Anesthesia General Description of Procedure Patient is taken the operative suite correctly identified. Once anesthesia was obtained the stone was localized in both planes. Two thousand five hundred shocks to the stone. There appeared to be fragmentation. Patient tolerated procedure well without any complications and is taken recovery stable condition. She will follow-up in 7-10 days with KUB. This completes dictation. Please send a copy to my office Estimated Blood Loss 0 Drains No Packing No Pathology None sent Complications No immediate complications Condition Stable Disposition PACU
== END 2022-10-21 09:58 | disposition home or self-care (01) ==
PROVIDERS: PCP Emergency Medicine; Visit Provider Urology
PROC: (CPT 50590; principal; 2022-10-21 07:30)
DX: N20.0 Calculus of kidney (principal); J45.909 Unspecified asthma, uncomplicated; K21.9 Gastro-esophageal reflux disease without esophagitis; Z79.51 Long term (current) use of inhaled steroids
CPT/HCPCS: 50590; 36415; 74018; 85610; 85730; 87086; 93005; J0690; J1100; J2405; J2704; J3010; J7120

== ENCOUNTER 2022-10-26 09:26 | Outpatient (CLI) | payer MEDICARE, SELFPAY ==
--- NOTE | ~2022-10-26 | XR_ITS ---
EXAMINATION: XR abdomen/kub 1V INDICATION: Calcium kidney stone TECHNIQUE: Supine views of the abdomen were obtained on 2 radiographs. COMPARISON: 10/21/2022 FINDINGS: The previously described 4 mm stone of the left kidney lower pole is not definitely identif ied, consistent with interval lithotripsy. No stones fragments are identified along the expected cour se of the left ureter. There are phleboliths of the pelvis. No urolithiasis is identified. A moderate volume of colonic stool is present. There is mild osteoarthritis of the hips. IMPRESSION: 1. No urolithiasis identified. Reviewed, dictated and finalized at location []
== END 2022-10-26 09:27 | disposition home or self-care (01) ==
PROVIDERS: PCP Emergency Medicine; Visit Provider Urology
DX: N20.0 Calculus of kidney (principal)
CPT/HCPCS: 74018

== ENCOUNTER 2022-12-12 12:38 | Emergency (ER) | payer MEDICARE, SELFPAY ==
--- NOTE | ~2022-12-12 | XR_ITS ---
EXAMINATION: XR chest 2V DATE: 12/12/2022 13:26 INDICATION: Shortness of breath and cough. TECHNIQUE: Frontal and lateral views of the chest were obtained. COMPARISON: Chest 2 views 07/28/2021 FINDINGS: There is chronic elevation of right hemidiaphragm. There are airspace opacities in right up per lobe, consistent with pneumonia. No pleural effusion or pneumothorax. The heart size is normal. S urgical clips in the right upper quadrant are likely from cholecystectomy. IMPRESSION: 1. Right upper lobe pneumonia. Reviewed, dictated and finalized at location A.
--- NOTE | 2022-12-12 12:39 | ECG_ITS ---
Measurements Intervals [place] Rate: 96 P: 61 OR: 160 QRS: -49 QRSD: 76 T: 47 QT: 325 QTc: 413 Interpretive Statements SINUS RHYTHM LOW QRS VOLTAGE IN PRECORDIAL LEADS [QRS DEFLECTION < 1.0 mV IN CHEST LEADS] LEFT ANTERIOR FASCICULAR BLOCK [QRS AXIS <= -45, QR IN I, RS IN II] PREVIOUS INFERIOR WALL [place] ABNORMAL ECG COMPARED TO ECG 10/14/2022 14:04:52 COMPARED WITH PREVIOUS TRACING NO OBVIOUS CHANGE, THIS TRACING IS OF MUCH BETTER QUALITY WITH LESS ARTIFACT Electronically Signed On 12-12-2022 17:08:51 CDT by Curt Miranda M.D.
[2022-12-12 12:41] VITALS: BP 130/56; PULSE 100; RESP 20; TEMP 36.6; O2SAT 98
[2022-12-12 13:09] LABS: Basophils Percent Auto 0.2 % (0.2-1.2); Immature Granulocyte Absolute 0.06 K/mm3 (0.00-0.031); Immature Granulocyte Percent A 0.4 % (0-0.5); Lymphocytes Absolute Auto 0.71 K/mm3 (0.9-3.2); Lymphocytes Percent Auto 4.2 % (18.3-44.2); Mean Corpuscular HGB Conc 33.3 g/dl (32-36); Mean Corpuscular Hemoglobin 32.6 pg (26-34); Mean Corpuscular Volume 97.9 fl (80-100); Mean Platelet Volume 10.6 fl (7.4-10.4); Monocytes Absolute Auto 0.8 K/mm3 (0.1-0.6); Monocytes Percent Auto 4.8 % (2.6-8.5); Neutrophils Absolute Auto 15.1 K/mm3 (1.3-6.7); Neutrophils Percent Auto 90.4 % (45.5-73.1); Platelet Count Result 199 k/mm3 (150-375); Red Blood Count 4.29 M/mm3 (4.2-5.4); White Blood Count 16.8 K/mm3 (4.5-10.0)
[2022-12-12 13:26] LABS: Alanine Aminotransferase 16 U/L (6-35); Albumin Level 4.2 g/dL (3.5-5.1); Alkaline Phosphatase 54 U/L (38-126); Anion Gap 8 mmol/L (8-16); Aspartate Amino Transferase 22 U/L (14-36); Bilirubin,Total 0.6 mg/dL (0.2-1.3); Blood Urea Nitrogen 12 mg/dL (7-17); Calcium 8.2 mg/dL (8.4-10.2); Carbon Dioxide 23 mmol/L (22-30); Chloride 103 mmol/L (98-107); Estimated CRCL calculation 54 ml/min; Estimated Glomerular Filt Rate > 60; Glucose 114 mg/dL (65-110); Potassium 3.3 mmol/L (3.4-5.0); Sodium 134 mmol/L (137-145)
[2022-12-12 16:15] VITALS: BP 131/56; PULSE 77; PULSE 78; RESP 31; O2SAT 100
[2022-12-12 16:38] VITALS: O2SAT 100
[2022-12-12 16:47] VITALS: PULSE 70; RESP 24
[2022-12-12] MEDS: IPRATROPIUM BR 0.02% INH SOLN 0.5 MG/2.5 ML VIAL 1 MG INHALATION (16:50)
[2022-12-12] MEDS: ALBUTEROL SULFATE NEB 2.5 MG/3 ML INH 10 MG INHALATION (16:50)
[2022-12-12 17:53] VITALS: BP 140/65; PULSE 99; O2SAT 100
--- NOTE | 2022-12-12 18:04 | ED.SOB ---
HPI - SOB/Dyspnea General Chief Complaint: Shortness of Breath/Dyspnea Stated Complaint: SOB Time Seen by Provider: 12/12/22 16:08 History of Present Illness HPI Narrative: Patient is a 72-year-old female who presents ER with shortness of breath. Ongoing over the last 3 days. Associated with cough. No fevers. Has history of chronic lung disease and sees an vaccine manager as well as geomorphology teacher. Cough is productive. No pain with deep breath. She has been using her albuterol at home. Related Data Home Medications Medication Instructions Recorded Confirmed albuterol sulfate 90 mcg/actuation 2 inh inhalation PRN PRN Shortness 06/11/21 11/21/22 aerosol inhaler Of Breath Lactobacillus 1 cap PO DAILY 10/20/22 11/21/22 acidophilus-Bifidobac.animalis 2.5 billion cell capsule (Daily Probiotic) ascorbic acid (vitamin C) 500 mg 500 mg PO DAILY 10/20/22 11/21/22 tablet azelastine 137 mcg (0.1 %) nasal 2 spray intranasal BID 10/20/22 11/21/22 spray aerosol biotin 5,000 mcg chewable tablet 5,000 mcg PO DAILY 10/20/22 11/21/22 calcium 600 mg capsule 600 mg PO DAILY 10/20/22 11/21/22 cetirizine 10 mg capsule (Zyrtec) 10 mg PO DAILY 10/20/22 11/21/22 cholecalciferol (vitamin D3) 100 100 mcg PO DAILY 10/20/22 11/21/22 mcg (4,000 unit) tablet cranberry fruit concentrate 250 mg 500 mg PO BID 10/20/22 11/21/22 chewable tablet (Azo Cranberry) cyclosporine 0.05 % eye drops in a 1 drp EACH EYE BID 10/20/22 11/21/22 dropperette (Restasis) estradiol-norethindrone acet 1 1 tablet PO DAILY 10/20/22 11/21/22 mg-0.5 mg tablet (Activella) fluticasone fur. 200 mcg-umeclid 1 inh inhalation DAILY 10/20/22 11/21/22 62.5 mcg-vilant 25 mcg inhalat.powder (Trelegy Ellipta) fluticasone propionate 50 2 spray intranasal DAILY 10/20/22 11/21/22 mcg/actuation nasal spray,suspension (Flonase Allergy Relief) folic acid 400 mcg tablet 0.4 mg PO DAILY 10/20/22 11/21/22 guaifenesin 1,200 mg tablet, 1,200 mg PO BID 10/20/22 11/21/22 extended release 12 hr (Mucinex) pantoprazole 40 mg tablet,delayed 40 mg PO QAM 10/20/22 11/21/22 release (Protonix) potassium 99 mg tablet 99 mg PO DAILY 10/20/22 11/21/22 rosuvastatin 5 mg tablet 5 mg PO DAILY 10/20/22 11/21/22 Allergies Allergy/AdvReac Type Severity Reaction Status Date / Time hydrocodone Allergy Mild itching Verified 12/12/22 16:16 latex Allergy Unknown Other Verified 12/12/22 16:16 MOXIFLOXACIN HCL Allergy Unknown Nausea and Uncoded 12/12/22 16:16 Vomiting Review of Systems Review of Systems: All systems reviewed & are unremarkable except as noted in HPI and below Constitutional: Constitutional: Denies chills and Denies fever(s) ENT: Denies nasal congestion and Denies sore throat Cardiovascular: Cardiovascular: Denies chest pain, Denies rapid heart rate and Denies radiating jaw, neck or arm pain Respiratory: Respiratory: Reports cough, Reports dyspnea and Denies wheezing Gastrointestinal: Gastrointestinal: Denies abdominal pain, Denies nausea and Denies vomiting PMFSH Past Medical History Medical History Arm fracture Asthma Bronchitis Fibrocystic breast GERD (gastroesophageal reflux disease) Rectal polyp Surgical History Surgical History H/O tubal ligation History of History of cholecystectomy Social History Social History Smoking status: Never smoker Second hand tobacco smoke exposure: Yes Gender identity (if verbalized by the patient): Female Exam Narrative: GENERAL: Well-appearing, well-nourished, and in no acute distress. HEAD: Normocephalic, atraumatic. ENT: Mucous membranes moist. NECK: Supple. CHEST: Right mid and lower lung rhonchi. No respiratory distress. HEART: Regular rate and rhythm. Normal peripheral pulses. ABDOMEN: Soft, nontender, n
[2022-12-12 18:06] VITALS: PULSE 115; RESP 24
== END 2022-12-12 18:28 | disposition home or self-care (01) ==
PROVIDERS: Emergency Provider Emergency Medicine; PCP Emergency Medicine
DX: J18.9 Pneumonia, unspecified organism (principal); J45.909 Unspecified asthma, uncomplicated; K21.9 Gastro-esophageal reflux disease without esophagitis; Z87.19 Personal history of other diseases of the digestive system; Z90.49 Acquired absence of other specified parts of digestive tract
CPT/HCPCS: 36415; 71046; 80053; 85025; 93005; 94640; 99284

== ENCOUNTER 2023-01-09 09:19 | Outpatient (CLI) | payer MEDICARE, SELFPAY ==
--- NOTE | ~2023-01-09 | XR_ITS ---
XR chest 2V 01/09/2023 09:45 Indication: Pneumonia follow-up Procedure: 2 view chest Comparison: Comparison to multiple prior studies sequentially, with oldest reviewed study dated 06/2019. Findings: There is been significant improvement of right upper lobe pneumonia. Elevated right diaphra gm, consistent with volume loss. Heart size normal. No pleural effusion or pneumothorax. No edema. No acute osseous abnormality. There are cholecystectomy clips. Impression: 1: Significant improvement of right upper lobe pneumonia. Reviewed, dictated and finalized at location B. Impression: 1: Significant improvement of right upper lobe pneumonia.
== END 2023-01-09 09:20 | disposition home or self-care (01) ==
PROVIDERS: PCP Emergency Medicine; Visit Provider Emergency Medicine
DX: J18.9 Pneumonia, unspecified organism (principal)
CPT/HCPCS: 71046

== ENCOUNTER 2023-01-12 08:29 | Outpatient (CLI) | payer MEDICARE, SELFPAY ==
--- NOTE | 2023-01-12 08:39 | EST_ITS ---
Patient Info Name: Yamila Peter Age: 72 years : 1950 Gender: Female Ht: 64 in Wt: 160 lbs BSA: 1.83 m2 Technical Quality: Fair Exam Date: 01/12/2023 9:09 AM Exam Location: [facility] Patient Status: Outpatient Admit Date: 01/12/2023 Staff Ordering Physician: Jack Antoine DO Chief Technology Officer: Cora Vasques RDCS Attending Provider: Referring Physician: Arash BLANCHARD; Exercise Technologist: Sissy Elliott CT Exercise Physician: Jack Antoine DO Exam Type: CA stress echo Study Info Indications - chest pain Treadmill exercise stress echocardiogram is performed. Summary 1. 1. Negative Bridger exercise stress test for ischemic ST changes by ECG criteria. 2. 2. Reduced functional capacity, achieving 7 METs of workload. 3. 3. Appropriate HR response to exercise. 4. 4. Appropriate HR recovery at 1 minute post exercise. 5. 5. Negative stress echocardiogram for ischemia by wall motion analysis. 6. 6. Patient informed of the above results. Stress Echo Findings Left Ventricle Appropriate increase in LV endocardial thickening with systole. Appropriate augmentation of contractility with systole. No wall motion abnormality. Left Ventricle Normal LV systolic function, no wall motion abnormality. Protocol: Bridger Stress ECG Details Stage: REST Duration (min): 0 min : 57 sec Speed (mph): 0.0 Grade (%): 0 HR (bpm): 62 SBP (mmHg): 107 DBP (mmHg): 64 METS: --- Stage: REST Duration (min): 37 min : 24 sec Speed (mph): 0.0 Grade (%): 0 HR (bpm): 69 SBP (mmHg): 107 DBP (mmHg): 64 METS: --- Stage: STAGE 1 Duration (min): 1 min : 0 sec Speed (mph): 1.7 Grade (%): 10 HR (bpm): 91 SBP (mmHg): 107 DBP (mmHg): 64 METS: --- Stage: STAGE 1 Duration (min): 2 min : 0 sec Speed (mph): 1.7 Grade (%): 10 HR (bpm): 102 SBP (mmHg): 107 DBP (mmHg): 64 METS: --- Stage: STAGE 1 Duration (min): 3 min : 0 sec Speed (mph): 1.7 Grade (%): 10 HR (bpm): 108 SBP (mmHg): 154 DBP (mmHg): 63 METS: --- Stage: STAGE 2 Duration (min): 1 min : 0 sec Speed (mph): 2.5 Grade (%): 12 HR (bpm): 123 SBP (mmHg): 154 DBP (mmHg): 63 METS: --- Stage: STAGE 2 Duration (min): 1 min : 42 sec Speed (mph): 2.5 Grade (%): 12 HR (bpm): 156 SBP (mmHg): 180 DBP (mmHg): 83 METS: --- Stage: RECOVERY Duration (min): 0 min : 17 sec Speed (mph): 0.0 Grade (%): 0 HR (bpm): 140 SBP (mmHg): 180 DBP (mmHg): 83 METS: --- Stage: RECOVERY Duration (min): 1 min : 17 sec Speed (mph): 0.0 Grade (%): 0 HR (bpm): 88 SBP (mmHg): 180 DBP (mmHg): 83 METS: --- Stage: RECOVERY Duration (min): 2 min : 17 sec Speed (mph): 0.0 Grade (%): 0 HR (bpm): 86 SBP (mmHg): 180 DBP (mmHg): 83 METS: --- Stage: RECOVERY Duration (min): 3 min : 17 sec Speed (mph): 0.0 Grade (%): 0 HR (bpm): 70 SBP (mmHg): 154 DBP (mmHg): 75 METS: --- Stage: RECOVERY Duration (min): 4 min
== END 2023-01-12 08:30 | disposition home or self-care (01) ==
LOC: ANHCARD 08:30
PROVIDERS: PCP Emergency Medicine; Visit Provider Internal Medicine Cardiovascular Disease
DX: R07.9 Chest pain, unspecified (principal)
CPT/HCPCS: 93351

== ENCOUNTER 2023-05-30 17:05 | Emergency (ER) | payer MEDICARE, SELFPAY ==
--- NOTE | ~2023-05-30 | XR_ITS ---
EXAMINATION: XR chest 2V Exam Date/Time: 05/30/2023 17:25 CITY DISPATCHER HISTORY: chest pain Comparison: 01/09/2023. RESULT: Lines, tubes, and devices: Cholecystectomy clips. Lungs and pleura: Right midlung scar, otherwise clear. Cardiomediastinal silhouette: Stable. Other: No acute osseous or upper abdominal finding. IMPRESSION: No acute cardiopulmonary process. Reviewed, dictated and finalized at location K. DISPATCHER
--- NOTE | ~2023-05-30 | CT_ITS ---
CT of the Abdomen and Pelvis: Indication: Abdominal pain Technique: 2.5 mm axial scans were obtained through the abdomen and pelvis following intravenous adm inistration of 100 cc of Omnipaque 350. Dose reduction technique was used on this scan by utilizing a utomated exposure control and iterative reconstruction technique. The dose-length product (DLP) was 6 84.86 mGy-cm. COMPARISON: 01/19/2022 Findings: Scans through the lung bases are unremarkable. Small hepatic cysts are noted. Cholecystectomy clips are present. The spleen, pancreas, adrenals and kidneys are within normal limits. No evidence of aortic aneurysm. No lymphadenopathy. No bowel obstruction or bowel wall thickening. There is no evidence to suggest acute appendicitis. Images through the pelvis were performed. Urinary bladder unremarkable. No pelvic mass seen. No ascit es. Impression: No significant abnormalities seen. Reviewed, dictated and finalized at [facility]. NG MACHINE TENDER Impression: No significant abnormalities seen.
--- NOTE | 2023-05-30 17:06 | ECG_ITS ---
Measurements Intervals [place] Rate: 70 P: -15 MD: 111 QRS: -38 QRSD: 94 T: 30 QT: 386 QTc: 418 Interpretive Statements SINUS OR ECTOPIC ATRIAL RHYTHM WITH SHORT MD INTERVAL LEFT AXIS DEVIATION LOW QRS VOLTAGE IN PRECORDIAL LEADS BORDERLINE R WAVE PROGRESSION, ANTERIOR LEADS BORDERLINE T WAVE ABNORMALITY- ANTERIOR LEADS BORDERLINE ECG COMPARED TO ECG 12/12/2022 12:47:55 LEFT-AXIS DEVIATION NOW PRESENT Electronically Signed On 05-30-2023 20:12:35 HAT FORMING MACHINE FEEDER by Jack Antoine D.O.
[2023-05-30 17:24] VITALS: BP 126/57; PULSE 72; RESP 16; TEMP 36.4; O2SAT 97
[2023-05-30 17:33] LABS: Basophils Percent Auto 0.4 % (0.2-1.2); Eosinophils Absolute Auto 0.1 K/mm3 (0-0.3); Eosinophils Percent Auto 0.8 % (0-4.4); Hematocrit 42.5 % (37.0-47.0); Hemoglobin 13.8 g/dL (12.0-15.0); Immature Granulocyte Absolute 0.03 K/mm3 (0.00-0.031); Immature Granulocyte Percent A 0.4 % (0-0.5); Lymphocytes Absolute Auto 1.27 K/mm3 (0.9-3.2); Lymphocytes Percent Auto 14.9 % (18.3-44.2); Mean Corpuscular HGB Conc 32.5 g/dl (32-36); Mean Corpuscular Hemoglobin 32.2 pg (26-34); Mean Corpuscular Volume 99.3 fl (80-100); Mean Platelet Volume 11.1 fl (7.4-10.4); Monocytes Absolute Auto 0.6 K/mm3 (0.1-0.6); Monocytes Percent Auto 6.8 % (2.6-8.5); Neutrophils Absolute Auto 6.5 K/mm3 (1.3-6.7); Neutrophils Percent Auto 76.7 % (45.5-73.1); Platelet Count Result 207 k/mm3 (150-375); Red Blood Count 4.28 M/mm3 (4.2-5.4); Red Cell Distribution Width 13.2 % (11.5-14.5); White Blood Count 8.5 K/mm3 (4.5-10.0)
[2023-05-30 17:43] LABS: Alanine Aminotransferase 13 U/L (6-35); Albumin Level 4.2 g/dL (3.5-5.1); Alkaline Phosphatase 60 U/L (38-126); Anion Gap 7 mmol/L (8-16); Aspartate Amino Transferase 23 U/L (14-36); Bilirubin,Total 0.5 mg/dL (0.2-1.3); Blood Urea Nitrogen 13 mg/dL (7-17); Calcium 8.7 mg/dL (8.4-10.2); Carbon Dioxide 24 mmol/L (22-30); Chloride 106 mmol/L (98-107); Estimated CRCL calculation 55 ml/min; Estimated Glomerular Filt Rate > 60; Glucose 95 mg/dL (65-110); Lipase 352 U/L (23-300); Potassium 3.8 mmol/L (3.4-5.0); Sodium 137 mmol/L (137-145)
[2023-05-30 17:47] LABS: INR 1.1; Prothrombin Time 14.7 Seconds (11.1-14.7)
[2023-05-30 17:48] LABS: Partial Thromboplastin Time 36.1 SECONDS (22.3-36.8)
[2023-05-30 18:00] LABS: Troponin I < 0.012 ng/mL (0.000-0.034)
--- NOTE | 2023-05-30 20:04 | ECG_ITS ---
Measurements Intervals [place] Rate: 66 P: 65 SC: 171 QRS: -34 QRSD: 82 T: 35 QT: 398 QTc: 420 Interpretive Statements SINUS RHYTHM LEFT AXIS DEVIATION DELAYED PRECORDIAL R/S TRANSITION BASELINE ARTIFACT- V4 BORDERLINE ECG COMPARED TO ECG 05/30/2023 17:12:46 SINUS RHYTHM NOW PRESENT Electronically Signed On 05-30-2023 20:23:16 DUSTER TENDER by Jack Antoine D.O.
[2023-05-30 20:38] LABS: Troponin I < 0.012 ng/mL (0.000-0.034)
[2023-05-30 21:30] VITALS: PULSE 71; O2SAT 100
[2023-05-30] MEDS: ONDANSETRON INJ 4 MG/2 ML VIAL IV PUSH (22:59)
[2023-05-30] MEDS: PANTOPRAZOLE SODIUM IV 40 MG VIAL IV PUSH (23:00)
[2023-05-30 23:19] VITALS: PULSE 71; RESP 22; O2SAT 100
--- NOTE | 2023-05-30 23:20 | ED.ABDPAIN ---
HPI - Abdominal Pain General Chief Complaint: Chest Pain Stated Complaint: chest, abd pain Time Seen by Provider: 05/30/23 22:09 Source: patient Mode of arrival: ambulatory Limitations: no limitations History of Present Illness HPI narrative: This is a 72-year-old female that presents to the emergency department for epigastric abdominal pain. Ongoing over the last couple of days. Associated with nausea and vomiting. Reports the pain is burning in nature and radiates into her chest. Does also report some shortness of breath. Denies fevers. Related Data Home Medications Medication Instructions Recorded Confirmed albuterol sulfate 90 mcg/actuation 2 inh inhalation PRN PRN Shortness 06/11/21 05/25/23 aerosol inhaler Of Breath Lactobacillus 1 cap PO DAILY 10/20/22 05/25/23 acidophilus-Bifidobac.animalis 2.5 billion cell capsule (Daily Probiotic) ascorbic acid (vitamin C) 500 mg 500 mg PO DAILY 10/20/22 05/25/23 tablet azelastine 137 mcg (0.1 %) nasal 2 spray intranasal BID 10/20/22 05/25/23 spray aerosol biotin 5,000 mcg chewable tablet 5,000 mcg PO DAILY 10/20/22 05/25/23 calcium 600 mg capsule 600 mg PO DAILY 10/20/22 05/25/23 cetirizine 10 mg capsule (Zyrtec) 10 mg PO DAILY 10/20/22 05/25/23 cholecalciferol (vitamin D3) 100 100 mcg PO DAILY 10/20/22 05/25/23 mcg (4,000 unit) tablet cranberry fruit concentrate 250 mg 500 mg PO BID 10/20/22 05/25/23 chewable tablet (Azo Cranberry) cyclosporine 0.05 % eye drops in a 1 drp EACH EYE BID 10/20/22 05/25/23 dropperette (Restasis) estradiol-norethindrone acet 1 1 tablet PO DAILY 10/20/22 05/25/23 mg-0.5 mg tablet (Activella) fluticasone fur. 200 mcg-umeclid 1 inh inhalation DAILY 10/20/22 05/25/23 62.5 mcg-vilant 25 mcg inhalat.powder (Trelegy Ellipta) fluticasone propionate 50 2 spray intranasal DAILY 10/20/22 05/25/23 mcg/actuation nasal spray,suspension (Flonase Allergy Relief) folic acid 400 mcg tablet 0.4 mg PO DAILY 10/20/22 05/25/23 guaifenesin 1,200 mg tablet, 1,200 mg PO BID 10/20/22 05/25/23 extended release 12 hr (Mucinex) pantoprazole 40 mg tablet,delayed 40 mg PO QAM 10/20/22 05/25/23 release (Protonix) potassium 99 mg tablet 99 mg PO DAILY 10/20/22 05/25/23 rosuvastatin 5 mg tablet 5 mg PO DAILY 10/20/22 05/25/23 Allergies Allergy/AdvReac Type Severity Reaction Status Date / Time hydrocodone Allergy Mild itching Verified 05/25/23 11:01 latex Allergy Unknown Other Verified 05/25/23 11:01 MOXIFLOXACIN HCL Allergy Unknown Nausea and Uncoded 05/25/23 11:01 Vomiting Review of Systems Review of Systems: CONSTITUTIONAL: Denies fever CARDIOVASCULAR: Reports chest pain. Denies edema. RESPIRATORY: Reports dyspnea. GASTROINTESTINAL: Reports abdominal pain, nausea, vomiting. Denies diarrhea. GENITOURINARY: Denies dysuria All systems reviewed & are unremarkable except as noted in HPI and below PMFSH Past Medical History Medical History Arm fracture Asthma Bronchitis Fibrocystic breast GERD (gastroesophageal reflux disease) Rectal polyp Surgical History Surgical History H/O tubal ligation History of History of cholecystectomy Social History Social History Smoking status: Never smoker Second hand tobacco smoke exposure: Yes Do You Feel Safe in your Home?: Yes Lack of Transportation: No Lack of Food: Never True Current Housing: I Have Housing Concerned About Future Housing: No Difficulty Paying Gas/Electric Bills: No Difficulty Paying for Meds: No Currently Unemployed: No Education: Master's Degree or Higher Difficulty w/ Childcare or Family Care: No Gender identity (if verbalized by the patient): Female Exam Narrative: GENERAL: Well-appearing, well-nourished, and in no acute distress. HEAD: Normocephalic, atra
[2023-05-30 23:39] VITALS: BP 137/68; PULSE 74; RESP 16; O2SAT 99
[2023-05-30 23:55] LABS: D Dimer 0.48 ug/mL (<0.48)
[2023-05-31] VITALS (21 sets, daily range): BP systolic 117–137; BP diastolic 57–68; PULSE 63–80; RESP 18–24; O2SAT 94–99
[2023-05-31] MEDS: MORPHINE SULFATE (*CRX) 4 MG/ML INJ IV PUSH (01:58)
== END 2023-05-31 06:30 | disposition home or self-care (01) ==
PROVIDERS: Emergency Medicine; Emergency Provider Physician Assistant; PCP Emergency Medicine
DX: R10.13 Epigastric pain (principal); J45.909 Unspecified asthma, uncomplicated; K21.9 Gastro-esophageal reflux disease without esophagitis
CPT/HCPCS: 36415; 71046; 74177; 80053; 83690; 84484; 85025; 85380; 85610; 85730; 93005; 96374; 96375; 99284; C9113; J2270; J2405; Q9967

== ENCOUNTER 2023-09-28 07:43 | Outpatient (CLI) | payer MEDICARE, SELFPAY ==
--- NOTE | ~2023-09-28 | DEXA_ITS ---
Bone Density Report Name: FABI MIGUEL Age: 72 Sex: Female Ethnicity: White Date of : 1950 Indication: postmenopausal; screening for osteoporosis; height loss; asthma or emphysema; Referring Provider: LEXII VANCE Study: Bone densitometry was performed. Exam Date: September 28, 2023 Accession number: [id number] Bone Density: Region BMD T-score Z-score Classification AP Spine(L1-L4) 1.075 0.3 2.5 Normal Femoral Neck (Left) 0.666 -1.6 0.3 Osteopenia Total Hip (Left) 0.805 -1.1 0.5 Osteopenia Femoral Neck (Right) 0.650 -1.8 0.2 Osteopenia Total Hip (Right) 0.783 -1.3 0.4 Osteopenia Total Hip Mean 0.794 -1.2 0.5 Osteopenia World Health Organization criteria for BMD impression classify patients as: Normal (T-score at or above -1.0), Osteopenia (T-score between -1.0 and -2.5), or Osteoporosis (T-score at or below -2.5). 10-year Fracture Risk(1): Major Osteoporotic Fracture 12% Hip Fracture 3.5% Reported Risk Factors: [place] (), Neck BMD=0.650, BMI=29.1, smoking (1) FRAX(R) Version 3.08. Fracture probability calculated for an untreated patient. Fracture probability may be lower if the patient has received treatment. Clinical Information Provided by Patient: Smokes Has used the following medications: Vitamin D, Calcium Has the following medical conditions: Asthma or Emphysema Patient maximum height was 64.5 Menopause Age: 42 Drinks caffeinated beverages Onset of menses at age 13 Number of children 1 Impression: The patient has low bone mass, based on the Right Femoral Neck T-score. The patient has an estimated ten-year risk of hip fracture of 3.5% and an estimated ten-year risk of major fracture of 12%, based on the WHO FRAX algorithm. The patient has risk factors, including: smoking. Discussion: BONE DENSITY IS LOW AT ONE OR MORE SKELETAL SITES. THE PATIENT'S BMD AND CLINICAL RISK FACTORS CONTRIBUTE TO THIS PATIENT'S INCREASED RISK OF FRACTURE. This patient's lowest T-score is low at one or more skeletal sites. It meets the World Health Organization's (WHO) criteria for ?low bone mass? (T-score between -1.0 and -2.5). The patient's 10-year risk of hip fracture as calculated by FRAX exceeds the threshold where pharmacological therapy is recommended by the National Osteoporosis Foundation (NOF). However, all treatment decisions require clinical judgment and consideration of individual patient factors, including patient preferences, comorbidities, previous drug use, risk factors not captured in the FRAX model (e.g., frailty, falls, vitamin D deficiency, increased bone turnover, interval significant decline in bone density) and possible under or overestimation of fracture risk by FRAX. The patient should follow a healthful lifestyle (good nutrition with adequate
== END 2023-09-28 07:44 | disposition home or self-care (01) ==
PROVIDERS: PCP Emergency Medicine; Visit Provider Obstetrics & Gynecology Gynecology
DX: M85.89 Other specified disorders of bone density and structure, multiple sites (principal); Z78.0 Asymptomatic menopausal state; Z13.820 Encounter for screening for osteoporosis
CPT/HCPCS: 77080

== ENCOUNTER 2023-10-24 16:44 | Outpatient (CLI) | payer MEDICARE, SELFPAY ==
--- NOTE | ~2023-10-24 | XR_ITS ---
Clinical Indication: Cough PA and lateral views of the chest: Comparison: 05/30/2023 Findings: The lungs are clear, without evidence of focal consolidation or pleural effusion. Cardiome diastinal silhouette is within normal limits. Bones and soft tissues are unremarkable. Impression: Normal chest. Reviewed, dictated and finalized at location . Impression: Normal chest.
== END 2023-10-24 16:45 | disposition home or self-care (01) ==
LOC: ANHIMG 16:46
PROVIDERS: PCP Emergency Medicine; Visit Provider Emergency Medicine
DX: R05.9 Cough, unspecified (principal); R06.02 Shortness of breath
CPT/HCPCS: 71046

== ENCOUNTER 2024-10-17 12:40 | Outpatient (CLI) | payer MEDICARE, SELFPAY ==
--- OUTSIDE RECORDS SUMMARY | 2024-10-17 12:59 | XMS_ITS | Referral Summary ---
Author Organization [facility] Address [address] [place] [address] Care Team Providers Care Engineering Job Titles Name Role Phone Atilio Romo MD Primary Care Provider Encounters Date Type Department Care Team Description 08/12/2024 7:20 AM CDT - 08/12/2024 11:59 PM CDT Hospital Encounter [facility] Breast Imaging [facility] ([facility]) [address] [place], [place] [id number] Screening mammogram, encounter for Discharge Disposition: Discharge to home or self care from Last 3 Months Allergies Active Allergy Reactions Criticality Noted Date Comments Latex Moxifloxacin Medications PROAIR HFA 90 mcg/actuation inhaler INL 2 PFS PO Q 4 TO 6 H PRN AND PER THE ASTHMA ACTION PLAN 1 02/15/20 18 Active LOPREEZA 1-0.5 mg per tablet TK 1 T PO QD 4 01/23/20 18 Active FLUZONE HIGH-DOSE 2018-19, PF, 180 mcg/0.5 mL syringe ADM 0.5ML IM UTD 0 01/08 18 Active PREVNAR 13, PF, 0.5 mL vaccine ADM 0.5ML IM UTD 0 01/06/20 18 Active cetirizine (ZyrTEC) 10 mg tablet Active fluticasone (FLONASE) 50 mcg/actuation nasal spray Administer 1 spray into each nostril daily Active cycloSPORINE (RESTASIS) 0.05 % ophthalmic emulsion 1 drop 2 (two) times a day Active pantoprazole DR (PROTONIX) 40 mg EC tablet TK 1 T PO QD 10/30/19 20 Active rosuvastatin (CRESTOR) 5 mg tablet 12/02/19 20 Active EPINEPHrine 0.3 mg/0.3 mL auto-injection syringe DIRECTED ONCE INTRAMUSCULARLY 08/21/19 21 Active guaiFENesin ER (MUCINEX) 600 mg 12 hr tablet Take 2 tablets (1,200 mg total) by mouth 2 (two) times a day Active dextromethorphan-g uaiFENesin (ROBITUSSIN-DM) oral liquid 10-200 mg/5mL as needed Active cholecalciferol (VITAMIN D-3) 2000 unit capsule 1 capsule (2,000 Units total) Active folic acid (FOLVITE) 400 mcg tablet Take 1 tablet (400 mcg total) by mouth daily Active ascorbic acid (VITAMIN C) 1,000 mg tablet Take 1 tablet (1,000 mg total) by mouth daily Active calcium carbonate (CALCIUM 600 ORAL) Take by mouth Active fluticasone furoate-vilanteroL (BREO ELLIPTA) 100-25 mcg/dose diskus inhaler Inhale 1 puff daily Rinse mouth with water after use. Do not swallow. 60 each 5 09/09/19 22 Active Spiriva Respimat 1.25 mcg/actuation inhaler Inhale 2 puffs daily 10/19/19 22 Active benzonatate (TESSALON) 200 mg capsuleIndications :Acute non-recurrent pansinusitis Take 1 capsule (200 mg total) by mouth 3 (three) times a day as needed (cough) 30 capsule 11/11/19 22 Active polyethylene glycol (GoLYTELY) 236-22.74-6.74 -5.86 gram solution Take 4,000 mL by mouth as directed 4000 mL 06/28/19 23 Active ondansetron (Zofran) 4 mg tabletIndications: Acute gastroenteritis Take 1 tablet (4 mg total) by mouth every 8 (eight) hours as needed for nausea or vomiting 5 tablet 06/28/19 23 Active tezepelumab-ekko (TEZSPIRE SUBQ) Inject under the skin Active azelastine (ASTELIN) 137 mcg (0.1 %) nasal spray Administer 1 spray into each nostril 2 (two) times a day Use in each nostril as directed Active cranberry 500 mg capsule Take by mouth Active Lactobacillus acidophilus 10 billion cell capsule Take by mouth Active potassium gluconate 600 mg (99 mg) tablet Take by mouth A ctive biotin 5 mg tablet Take by mouth Active Active Problems Problem Noted Date Diagnosed Date History of colon polyps 06/28/2022 Overview (06/28/2022): Added automatically from request for surgery [id number] Cecal polyp 09/14/2020 Overview (09/14/2020): Added automatically from request for surgery [id number] H/O esophageal ulcer 09/14/2020 Overview (09/14/2020): Added automatically from request for surgery [id number] Paradoxical vocal fold motion disorder 9 Assessment & Plan (02/12/2021 12:48 PM CDT): Given that she's symptomatic again, I have recommended another series of laryngeal control therapy. Although she's still been practicing exercises, they don't appear to be quite right. Assessment & Plan (07/03/2018 11:00 AM TELEPHONE DIRECTORY DISTRIBUTOR DRIVER): I have recommended laryngeal control therapy here at the [facility] in order to control the patient's symptoms. The patient's diagnosis was discussed in detail along with how therapy can improve it. Fibrocystic breast changes 07/02/2015 Abnormal findings on diagnostic imaging of justyna t 05/28/2014 Asthma Immunizations Immunization Administration Dates Next Due Influenza, Unspecified 01/27/2020,01/16/2018 Social History Tobacco Use Types Packs/Day Years Used Date Smoking Tobacco: Never Smokeless Tobacco: Never Tobacco Cessation:Counseling Given: Not Answered Alcohol Use Standard Drinks/Week Comments Yes 0 (1 standard drink = 0.6 oz pur e alcohol) AUDIT-C Answer Date Recorded Q1: How often do you have a drink containing alc ohol? Monthly or less 08/10/2022 Q2: How many drinks containi ng alcohol do you have on a typical day when you are drinking? 1 or 2 08/10/2022 Q3: How often do you have si x or more drinks on one occasion? Never 08/10/2022 Personal Safety Answer Date Recorded Have you ever been in or are you currently in a harmful physical or emotional relationship or is someone making you feel afraid or unsafe? Denies 08/10/2022 Comments No Sex and Gender Information Value Date Recorded Sex Assigned at Not on file Legal Sex Female 4:41 AM TELEPHONE DIRECTORY DISTRIBUTOR DRIVER Gender Identity Female 01/27/2020 6:48 AM CDT Sexual Orientation Not on file Last Filed Vital Signs Vital Sign Reading Time Taken Comments Blood Pressure 125/68 08/10/2022 10:53 AM CDT Pulse 78 08/10/2022 10:53 AM CDT Temperature 36.3 C (97.3 F) 08/10/2022 10:33 AM CDT Respiratory Rate 20 08/10/2022 10:53 AM CDT Oxygen Saturation 100% 08/10/2022 10:53 AM CDT Inhaled Oxygen Concentration - - Weight 72.1 kg (159 lb) 08/10/2022 9:31 AM CDT Height 162.6 cm (5' 4) 08/10/2022 9:31 AM CDT Body Mass Index 27.29 08/10/2022 9:31 AM CDT Plan of Treatment Not on file Procedures Procedure Name Priority Date/Time Associated Diagnosis Comments SCREENING MAMMOGRAM BILATERAL W CURTIS Schedule Routine, Read Routine (OP Routine) 08/12/2024 7:40 AM CDT Screening mammogram, encounter for COLONOSCOPY 08/10/2022 9:55 AM CDT from Last 3 Months or Most Recently Relevant to Health Maintenance Results * Screening Mammogram Bilateral W Curtis (08/12/2024 7:40 AM CDT) Anatomical Region Laterality Modality Breast Bilateral Mammography Narrative 08/13/2024 10:28 AM CDT Mammogram Technique: Bilateral Digital Breast Tomosynthesis, Bilateral C-view 2D Screening mammogram. Views obtained: bilateral craniocaudal and bilateral mediolateral oblique. Computer Aided Detection was performed. Mammogram Findings: The present examination has been compared to prior imaging studies performed at [facility] on 12/04/2019, 04/26/2021 and 05/26/2022. There are scattered areas of fibroglandular density. There is no suspicious abnormality in either breast. Impression: There is no mammographic evidence of malignancy. Annual screening mammography is recommended. OVERALL FINAL ASSESSMENT: BI-RADS CATEGORY 1: Negative. Procedure Note Petrona Skinner MD - 08/13/2024 Mammogram Technique: Bilateral Digital Breast Tomosynthesis, Bilateral C-view 2D Screening mammogram. Views obtained: bilateral craniocaudal and bilateral mediolateral oblique. Computer Aided Detection was performed. Mammogram Findings: The present examination has been compared to prior imaging studies performed at [facility] on 12/04/2019, 04/26/2021 and 05/26/2022. There are scattered areas of fibroglandular density. There is no suspicious abnormality in either breast. Impression: There is no mammographic evidence of malignancy. Annual screening mammography is recommended. OVERALL FINAL ASSESSMENT: BI-RADS CATEGORY 1: Negative. us Self Screening Mammogram IMG MAMMO PROCEDURES Fi nal Result * COLONOSCOPY (08/10/2022 9:55 AM CDT) Anatomical Region Laterality Modality Other Narrative Procedure Note Forest Sam MD - 08/10/2022 9:55 AM CDT [facility] Patient Name: Yamila Peter Procedure Date: 08/10/2022 9:55 AM Date of : 1950 Admit Type: Outpatient Age: 71 Gender: Female Attending MD: Forest Gallegos M.D. Room: [facility] ENDOSCOPY ROOM 9 Note Status: Finalized Procedure: Colonoscopy Indications: High risk colon cancer surveillance: Personalhistory of colonic polyps Referring MD: Atilio Romo M.D. Providers: Forest Gallegos M.D. Comorbidities Prior history of advanced adenoma and colonic polyposis, status post prior endoscopicresection. Medicines: Monitored Anesthesia Care Complications: No immediate complications. Estimated Blood Loss: Estimated blood loss was minimal. Procedure: Pre-Anesthesia Assessment: - The risks and benefits of the procedure and the sedation options and risks were discussed with the patient. All questions were answered and informed consent was obtained. - Immediately prior to administration ofmedications, the patient was re-assessed for adequacy to receive sedatives. The benefits, risks and alternatives of theprocedure and sedation were discussed and informed consentwas obtained. All questions were answered. Please referto the signed informed consent document in the medical record. The colonoscopy was performed without difficulty. The patient tolerated the procedurewell. The quality of the bowel preparation was good. The quality of the bowel preparation was evaluatedusing the BBPS (Radom Bowel Preparation Scale) withscores of: Right Colon = 3, Transverse Colon = 3 and Left Colon = 3 (entire mucosa seen well with no residual staining, small fragments of stool or opaqueliquid). The total BBPS score equals 9. The bowelpreparation used was polyethylene glycol (PEG) via split dose instruction. The scope was passed under directvision. The [id number] endoscope was introduced through the anus and advanced to the cecum,identified by appendiceal orifice and ileocecal valve. Bowelprep was administered using a single dose. Findings: The perianal and digital rectal examinations were normal. Five sessile polyps were found in the sigmoid colon, descendingcolon, transverse colon and ascending colon. The polyps were 2 to 8 mm insize. These polyps were removed with a cold snare. Resection and retrieval were complete. A diminutive polyp was found in the ascending colon. The polyp was sessile. The polyp was removed with a cold biopsy forceps. Resectionand retrieval were complete. A medium post mucosectomy scar was found in the cecum. The scartissue was healthy in appearance. This was biopsied with a cold forceps for histology. A tattoo was seen in the transverse colon. A post-polypectomy scarwas found at the tattoo site. The exam was otherwise without abnormality on direct and retroflexion views. Impression: - Five 2 to 8 mm polyps in the sigmoid colon, inthe descending colon, in the transverse colon and inthe ascending colon, removed with a cold snare.Resected and retrieved. - One diminutive polyp in the ascending colon,removed with a cold biopsy forceps. Resected andretrieved. - Post mucosectomy scar in the cecum. Biopsied. - The examination was otherwise normal on directand retroflexion views. Recommendation: - Await pathology results from tissue sampling. Ifyou do not receive a call from my office after 5business days following today's procedure, please call my office at [phone] and speak to my nurse. - Repeat colonoscopy in 3 years for adenoma surveillance. - Return to referring provider as indicated. - In the unusual situation that you developabdominal pain, bleeding or other significant problems in the days following this procedure please call my office [phone]). After hours and eveningsplease call [phone] and speak to the GI fellow reginaldo. Please tell the fellow that Dr. Gallegos did your procedure and that you were instructed to have the fellow call me or the physician covering for me to discuss the management of your condition. If youhave an urgent problem, please go to the nearestemergency room and have the ER doctor call my office duringthe day or the GI fellow after hours and weekends to arrange admission or transfer to our facility.Please bring this report with you if you go to theemergency room. Attending Participation: I personally performed the entire procedure. Electronically signed by Forest Gallegos MD Forest Gallegos M.D. 08/10/2022 10:23:27 AM . Number of Addenda: 0 Note Initiated On: 08/10/2022 9:55 AM Recognized by the [employer] for promoting quality in endoscopy Forest Gallegos MD ENDOSCOPY PROCEDURES Final Result from Last 3 Months or Most Recently Relevant to Health Maintenance Insurance [employer] MEDICARE PPO [employer] CHOICE MEDICARE PPO Advance Directives For more information, please contact: [phone] * Full Code (Latest Code Status on File) Date Activated Date Inactivated Comments 08/10/2022 9:17 AM 08/10/2022 3:33 PM * Full Code Date Activated Date Inactivated Comments 10/08/2020 1:39 PM 10/08/2020 8:47 PM Care Teams Engineering Job Titles Relationship Specialty Start Date End Date Atilio Romo MD PCP - General 09/07/17
--- OUTSIDE RECORDS SUMMARY | 2024-10-17 12:59 | XMS_ITS | Encounter Summary ---
Author Organization [facility] Address [address] [place] [address] Phone Care Team Providers Care Thermal Surfacing Machine Operator Name Role Phone Atilio Romo MD Primary Care Provider + [phone] Encounter Details Date Type Department Care Team (Late st Contact Info) Description 11/19/2018 Orders Only [facility] Scanning, Provider Social History Tobacco Use Types Packs/Day Years Used Date Smoking Tobacco: Never Smokeless Tobacco: Never Alcohol Use Standard Drinks/Week Comments Yes 0 (1 standard drink = 0.6 oz pur e alcohol) Comments Unknown Sex and Gender Information Value Date Recorded Sex Assigned at Not on file Legal Sex Female 4:41 AM [employer] Gender Identity Female 01/27/2020 6:48 AM CDT Sexual Orientation Not on file documented as of this encounter Plan of Treatment Not on file documented as of this encounter Procedures Procedure Name Priority Date/Time Associated Diagnosis Comments SCAN - PATHOLOGY 11/19/2018 documented in this encounter Results * SCAN - PATHOLOGY (11/19/2018) us Provider Scanning Edited Result - Final documented in this encounter Visit Diagnoses Not on filedocumented in this encounter Additional Health Concerns Infection Onset Date Last Indicated Resolved Time COVID: Suspected 06/07/2021 06/07/2021 06/07/2021 6:52 PM [employer] COVID: Suspected 06/07/2021 06/07/2021 06/09/2021 2:49 AM [employer] COVID: Suspected 10/10/2021 10/10/2021 10/10/2021 11:49 PM CDT COVID: Suspected 11/10/2021 11/10/2021 11/10/2021 11:43 PM CDT documented as of this encounter Care Teams Thermal Surfacing Machine Operator Relationship Specialty Start Date End Date Atilio Romo MD PCP - General 09/07/17 documented as of this encounter
--- OUTSIDE RECORDS SUMMARY | 2024-10-17 12:59 | XMS_ITS | Patient Health Record ---
Author Organization [facility] [employer] [place] ([address]) Address [address] [place] [address] Care Team Providers Care Credit Clerk Name Role Phone Atilio Romo Primary Care Provider Adriana Garcia Unavailable [phone] Elia De La Cruz Unavailable [phone] Allergies Allergen (clinical drug ingredient) Drug/Non Drug Allergy documented on EMR Reaction Allergy Type Onset Date Status AVELOX (uncoded) gastritis Allergy Act gerri Latex Latex Unknown Allergy Active Results Component Value Reference Range Notes Spirometry Reviewed date:02/29/2024 10:22:59 AM Interpretation:Abnormal Performing Lab: Notes/Report: Abnormal SpiroPreBronchodilator_FVC 1.93 SpiroPostBronchodilator_FEF25_75 0 SpiroPreBronchodilator_FEF25_75 2.63 SpiroPreBronchodilator_FEV1 1.65 SpiroPrecentPredictionPost_FEF25_75 0 SpiroPrecentPredictionPost_FEV1 0 SpiroPrecentPredictionPost_FEV1_OVER_FVC 0 SpiroPrecentPredictionPost_FVC 0 SpiroPrecentPredictionPre_FEF25_75 143.7 SpiroPrecentPredictionPre_FEV1 77.8 SpiroPrecentPredictionPre_FEV1_OVER_FVC 113.8 SpiroPrecentPredictionPre_FVC 68.7 SpiroPredicted_FEF25_75 1.83 SpiroPreBronchodilator_FEV1_OVER_FVC 85.75 SpiroPreBronchodilator_PEF 5.21 SpiroPostBronchodilator_FVC 0 SpiroPostBronchodilator_FEV1 0 SpiroPostBronchodilator_FEV1_OVER_FVC 0 SpiroPostBronchodilator_PEF 0 SpiroPredicted_FVC 2.81 SpiroPredicted_FEV1 2.12 SpiroPredicted_FEV1_OVER_FVC 75.35 SpiroPredicted_PEF 5.41 Reason For Referral Diagnosis 1 Mucopurulent chronic bronchitis (J41.1) Referral Organization [facility] Referring Provider First Name Adriana Referring Provider Last Name Nato Referring Provider Speciality Allergy/Im munology Referred Provider Yi Zuleta Referred Provider Specialty Pulmonary Lindsay escobar Referral Priority Routine Medications Medication SIG (Take, Route, Frequency, Duration) Notes Start Date End Date Status TRELEGY ELLIPTA 200 mcg-62.5 mcg-25 mcg/inh USE 1 INHALATION BY MOUTH ONCE DAILY for 90 Not-Taking Restasis 0.05 % 1 gtt in each affected eye every 12 hours for 30 day(s) Active BREO ELLIPTA 200 mcg-25 mcg/inh 1 puff(s) inhaled once a day for 30 days Not-Taking Azelastine HCl 137 MCG/SPRAY 2 spray(s) intranasally 2 times a day Active PREVNAR 20 - 0.5 mL intramuscularly once for 30 days 3 Not-Taking Airsupra 90-80 MCG/ACT Inhalation Active ZyrTEC Allergy 10 MG 1 tab(s) orally onc e a day Active PREDNISONE 20 mg 2 tab(s) orally once a day for 5 days 2 Not-Taking predniSONE 20 MG Oral Act gerri guaiFENesin ER 600 MG 1 tab(s) orally every 12 hours Active AZELASTINE NASAL 137 mcg/inh 2 spray(s) intranasally 2 times a day Active Vitamin D3 50 MCG (2000 UT) 1 cap(s) orally once a day for 30 day(s) Active Famotidine 40 MG TAKE 1 TABLET BY MOUTH TWICE DAILY for 90 Active FAMOTIDINE 40 mg 1 tab(s) orally twice a day for 90 days Not-Taking BREZTRI AEROSPHERE 160 mcg-4.8 mcg-9 mcg/inh 2 puff(s) inhaled 2 times a day Not-Taking Activella 1-0.5 MG 1 tab(s) orally once a day Active EpiPen 2-Lesia 0.3 MG/0.3ML as directed intramuscularly once for 30 day(s) Active ALBUTEROL (EQV-PROAIR HFA) 90 mcg/inh inhale 2 puffs by mouth every 4 to 6 hours as needed inhaled Q4-6 hours, PRN and per the asthma action plan for 30 day(s) Not-Taking TRELEGY ELLIPTA 200 mcg/62.5mcg/25mcg 1 puff inhaled once a day for 90 days Not-Taking PREDNISONE 20 mg patient to call md for instruction on dose. orally once a day for 5 days Not-Taking Amoxicillin 875 MG 1 tab(s) orally every 12 hours Not-Taking methylPREDNISolone 4 MG as directed Not-Taking Breztri Aerosphere 160 MCG-4.8 MCG-9 MCG/INH 2 PUFF(S) INHALED 2 TIMES A DAY *Please review and pick correct strength-formul ation from [employer] options. If intended option is not shown, discontinue and re-order from Quick Search* Not-Taking Trelegy Ellipta 200 MCG/62.5MCG/25MCG 1 PUFF INHALED ONCE A DAY for 90 DAYS *Please review and pick correct strength-formul ation from [employer] options. If intended option is not shown, discontinue and re-order from Quick Search* Not-Taking FLONASE 0.05 mg/inh 2 spray(s) intranasally (avoid nasal septum) twice a day Not-Taking TRELEGY ELLIPTA 200 mcg/62.5mcg/25mcg 1 puff inhaled once a day for 90 days Not-Taking RESTASIS 0.05% 1 gtt in each affected eye every 12 hours for 30 day(s) Active AMOXICILLIN 875 mg 1 tab(s) orally every 12 hours Not-Taking Breo Ellipta 200 MCG-25 MCG/INH 1 PUFF(S) INHALED ONCE A DAY for 30 DAYS *Please review and pick correct strength-formul ation from [employer] options. If intended option is not shown, discontinue and re-order from Quick Search* Not-Taking AEROCHAMBER PLUS N/A Use with inhaler by mouth with albuterol per asthma action plan Active SIT (TRADITIONAL) variable per schedule SC per schedule Active Prevnar 20 - 0.5 ML INTRAMUSCULARLY ONCE for 30 DAYS *Please review and pick correct strength-formul ation from [employer] options. If intended option is not shown, discontinue and re-order from Quick Search* 3 Not-Taking ZYRTEC 10 mg 1 tab(s) orally once a day Active NASAL WASHES N/A as directed intranasally as needed Active predniSONE 20 MG 2 tab(s) orally once a day for 5 days 2 Not-Taking FLONASE 0.05 mg/inh 2 spray(s) intranasally (avoid nasal septum) twice a day Active predniSONE 20 MG patient to call md for instruction on dose. orally once a day for 5 days Not-Taking PROAIR HFA CFC FREE 90 MCG/INH 2 PUFF(S) INHALED Q4-6 HOURS, PRN AND PER THE ASTHMA ACTION PLAN for 30 DAY(S) *Please review for potential replacement for e-prescription and drug interaction check* Not-Taking PROTONIX 40 mg 1 tab(s) orally once a day Not-Taking VITAMIN D3 2000 intl units 1 cap(s) orally once a day for 30 day(s) Not-Taking EPIPEN 2-LESIA 0.3 mg as directed intramuscularly once for 30 day(s) Active TEZSPIRE ekko 210 mg/1.91 mL as directed subcutaneously every 4 weeks for 365 days 3 Not-Taking ACTIVELLA 1 mg-0.5 mg 1 tab(s) orally on ce a day Not-Taking Tezspire EKKO 210 MG/1.91 ML DIRECTED SUBCUTANEOUSLY EVERY 4 WEEKS *Please review and pick correct strength-formul ation from [employer] options. If intended option is not shown, discontinue and re-order from Quick Search* 3 Active GUAIFENESIN ER 600 mg 1 tab(s) orally every 12 hours Active Trelegy Ellipta 200 MCG-62.5 MCG-25 MCG/INH 1 puff inhaled once a day for 90 days Active FAMOTIDINE 40 mg 1 tab(s) orally twice a day for 30 days Active Albuterol Sulfate HFA 108 (90 Base) MCG/ACT INHALE 2 PUFFS Inhalation every 4 hrs for 90 days As needed Active Flonase Allergy Relief 50 MCG/ACT 2 spray(s) intranasally (avoid nasal septum) twice a day Active Protonix 40 MG 1 tab(s) orally once a day Active Cefdinir 300 MG Oral Acti ve METHYLPREDNISOLONE DOSE PACK 4 mg as directed Not-Taking Immunizations Vaccine Route Administration Date Status Comme nts COVID-19 (Moderna) Unknown 06/03/2020 Administered COVID-19 (Moderna) Unknown 06/03/2020 Administered COVID-19 (Moderna) Unknown 07/07/2020 Administered COVID-19 (Moderna) Unknown 08/06/2021 Administered Flucelvax Unknown 05/02/2019 Administered FLUZONE High-Dose Quadrivalent Unknown 01/18/2021 Administered Influenza Unknown 01/03/2014 Administered Influenza Unknown 02/03/2015 Administered NOC Flucelevax Quadrivalent Unknown 01/01/2020 Administered NOC Flucelevax Quadrivalent Unknown 01/17/2020 Administered NOC Flucelevax Quadrivalent Unknown 05/01/2020 Administered NOC Flucelvax Quadrivalent IM Intramuscular 01/26/2016 Administered NOC Flucelvax Quadrivalent IM Intramuscular 01/09/2017 Administered NOC Fluzone Quadrivalent Unknown 01/23/2018 Administered NOC Fluzone Quadrivalent Unknown 06/14/2018 Others NOC Fluzone Quadrivalent Unknown 01/23/2022 Administered NOC PedvaxHIB IM Intramuscular 07/23/2014 Administered No reactions noted. NOC Pneumovax 23 Unknown 01/04/2010 Administered NOC Pneumovax 23 Unknown 01/14/2019 Administered NOC Pneumovax 23 Unknown 12/10/2020 Administered NOC Prevnar 13 Unknown 01/04/2018 Administered NOC Prevnar 20 Unknown 09/29/2022 Administered Pedvax Hib IM Intramuscular 12/20/2017 Administered Social History Tobacco Use: Social History Observation Description Date Details (start date - stop date) Never Smoker NA - NA Tobacco Control (Standard) Question Answer Notes Tobacco use: Nonsmoker AUDIT-C (Standard) Question Answer Notes Did you have a drink contain ing alcohol in the past year? Yes How often did you have a dri nk containing alcohol in the past year? Monthly or less (1 point) How many drinks did you have on a typical day when you were drinking in the past year? 1 or 2 drinks (0 point) How often did you have six o r more drinks on one occasion in the past year? Never (0 point) Points 1 Interpretation Negative Problems Problem Type SNOMED Code ICD Code Onset Dates Problem Status W/U Status Risk Notes Problem Shortness of breath (289106892) Shortness of breath (R06.02) Active confirmed Problem Lymphocytopenia (93174423) Lymphocytopenia (D72.810) Active confirmed Problem Chronic allergic conjunctivitis (40978159) Other chronic allergic conjunctivitis (H10.45) Active confirmed Problem Acute frontal sinusitis (78155389) Acute frontal sinusitis, unspecified (J01.10) Active confirmed Problem Acute sinusitis (27069817) Acute sinusitis, unspecified (J01.90) Active confirmed Problem Pneumonia (558662471) Pneumonia, unspecified organism (J18.9) Active confirmed Problem Allergic rhinitis caused by pollen (disorder) (21475695) Allergic rhinitis due to pollen (J30.1) Active confirmed Problem Allergic rhinitis caused by animal hair and dander (704549129056782) Allergic rhinitis due to animal (cat) (dog) hair and dander (J30.81) Active confirmed Problem Allergic rhinitis (70316145) Other allergic rhinitis (J30.89) Active confirmed Problem Chronic sinusitis (42091854) Other chronic sinusitis (J32.8) Active confirmed Problem Mucopurulent chronic bronchitis (56947112) Mucopurulent chronic bronchitis (J41.1) Active confirmed Problem Uncomplicated moderate persistent asthma (749862920) Moderate persistent asthma, uncomplicated (J45.40) Active confirmed Problem Uncomplicated severe persistent asthma (536834329) Severe persistent asthma, uncomplicated (J45.50) Active confirmed Problem Gastro-esophageal reflux disease without esophagitis (911261165) Gastro-esophageal reflux disease without esophagitis (K21.9) Active confirmed Problem Elevated blood pressure reading without diagnosis of hypertension (488323348) Elevated blood-pressure reading, without diagnosis of hypertension (R03.0) Active confirmed Problem Cough (86127900) Cough (R05) Active confirmed Problem Hypoxemia (854578539) Hypoxemia (R09.02) Active confirmed Problem Allergic rhinitis caused by pollen (disorder) (29589842) Allergic rhinitis due to pollen (J30.1) Active confirmed Problem Allergic rhinitis caused by animal hair and dander (760362844877562) Allergic rhinitis due to animal (cat) (dog) hair and dander (J30.81) Active confirmed Problem Allergic rhinitis (06469025) Other allergic rhinitis (J30.89) Active confirmed Problem Uncomplicated moderate persistent asthma (311488741) Moderate persistent asthma, uncomplicated (J45.40) Active confirmed Problem Exacerbation of moderate persistent asthma (disorder) (362011894) Moderate persistent asthma with (acute) exacerbation (J45.41) Active confirmed Problem Uncomplicated severe persistent asthma (577941754) Severe persistent asthma, uncomplicated (J45.50) Active confirmed Problem Acute severe exacerbation of severe persistent asthma (183724076) Severe persistent asthma with (acute) exacerbation (J45.51) Active confirmed Problem Chronic allergic conjunctivitis (00169534) Other chronic allergic conjunctivitis (H10.45) Active confirmed Problem Eruption of skin (228594780) Rash and other nonspecific skin eruption (R21) Active confirmed Problem Elevated blood pressure reading without diagnosis of hypertension (029262220) Elevated blood-pressure reading, without diagnosis of hypertension (R03.0) Active confirmed Problem Gastro-esophageal reflux disease without esophagitis (363501311) Gastro-esophageal reflux disease without esophagitis (K21.9) Active confirmed Vital Signs Respiratory Rate 17 /min 07/25/2024 Oximetry 98 % 09/26/2024 Blood pressure diastolic 79 mm Hg 09/26/2024 Height 64 in 09/26/2024 Blood pressure systolic 134 mm Hg 09/26/2024 Weight 169.6 lbs 07/25/2024 BMI 29.11 kg/m2 07/25/2024 Encounters Encounter Location Date Provider Diagnosis [facility] [address] [place] [phone] 11/07/2023 Elia De La Cruz Allergic rhinitis du e to pollen J30.1 ; Allergic rhinitis due to animal (cat) (dog) hair and dander J30.81 ; Other allergic rhinitis J30.89 and Other chronic allergic conjunctivitis H10.45 [facility] [address] [place] [phone] 11/09/2023 Elia De La Cruz Severe persistent asthma, uncomplicated J45.50 [facility] [address] [place] [phone] 12/07/2023 Adriana Nato Severe persistent asthma, uncomplicated J45.50 ; Other chronic sinusitis J32.8 ; Chronic cough R05.3 ; Pneumonia, unspecified organism J18.9 ; Gastro-esophageal reflux disease without esophagitis K21.9 ; Allergic rhinitis due to pollen J30.1 ; Other allergic rhinitis J30.89 and Other chronic allergic conjunctivitis H10.45 [facility] [address] [place] [phone] 12/13/2023 Elia De La Cruz Allergic rhinitis du e to pollen J30.1 ; Allergic rhinitis due to animal (cat) (dog) hair and dander J30.81 ; Other allergic rhinitis J30.89 and Other chronic allergic conjunctivitis H10.45 [facility] [address] [place] [id number] 01/04/2024 Elia De La Cruz Severe persistent asthma, uncomplicated J45.50 [facility] [address] [place] [phone] 01/10/2024 Elia De La Cruz Allergic rhinitis du e to pollen J30.1 ; Allergic rhinitis due to animal (cat) (dog) hair and dander J30.81 ; Other allergic rhinitis J30.89 and Other chronic allergic conjunctivitis H10.45 [facility] [address] [place] [phone] 02/01/2024 Elia De La Cruz Severe persistent asthma, uncomplicated J45.50 [facility] [address] [place] [id number] 02/08/2024 Elia De La Cruz Allergic rhinitis du e to pollen J30.1 ; Allergic rhinitis due to animal (cat) (dog) hair and dander J30.81 ; Other allergic rhinitis J30.89 and Other chronic allergic conjunctivitis H10.45 [facility] [address] [place] [phone] 02/29/2024 Adriana Dutton Severe persistent asthma, uncomplicated J45.50 ; Other chronic sinusitis J32.8 ; Chronic cough R05.3 ; Pneumonia, unspecified organism J18.9 ; Gastro-esophageal reflux disease without esophagitis K21.9 ; Allergic rhinitis due to pollen J30.1 ; Other allergic rhinitis J30.89 and Other chronic allergic conjunctivitis H10.45 [facility] [address] [place] [phone] 03/07/2024 Elia De La Cruz Allergic rhinitis du e to pollen J30.1 ; Allergic rhinitis due to animal (cat) (dog) hair and dander J30.81 ; Other allergic rhinitis J30.89 and Other chronic allergic conjunctivitis H10.45 [facility] [address] [place] [id number] 04/01/2024 Elia De La Cruz Severe persistent asthma, uncomplicated J45.50 [facility] [address] [place] [id number] 04/18/2024 Elia De La Cruz Allergic rhinitis du e to pollen J30.1 ; Allergic rhinitis due to animal (cat) (dog) hair and dander J30.81 ; Other allergic rhinitis J30.89 and Other chronic allergic conjunctivitis H10.45 [facility] [address] [place] [id number] 04/29/2024 Elia De La Cruz Severe persistent asthma, uncomplicated J45.50 [facility] [address] [place] [phone] 05/16/2024 Elia De La Cruz Allergic rhinitis du e to pollen J30.1 ; Allergic rhinitis due to animal (cat) (dog) hair and dander J30.81 ; Other allergic rhinitis J30.89 and Other chronic allergic conjunctivitis H10.45 [facility] [address] [place] [phone] 05/23/2024 Elia De La Cruz Allergic rhinitis du e to pollen J30.1 ; Allergic rhinitis due to animal (cat) (dog) hair and dander J30.81 ; Other allergic rhinitis J30.89 and Other chronic allergic conjunctivitis H10.45 [facility] [address] [place] [id number] 05/27/2024 Elia De La Cruz Allergic rhinitis du e to pollen J30.1 ; Allergic rhinitis due to animal (cat) (dog) hair and dander J30.81 ; Other allergic rhinitis J30.89 and Other chronic allergic conjunctivitis H10.45 [facility] [address] [place] [id number] 06/20/2024 Elia De La Cruz Allergic rhinitis du e to pollen J30.1 ; Allergic rhinitis due to animal (cat) (dog) hair and dander J30.81 ; Other allergic rhinitis J30.89 and Other chronic allergic conjunctivitis H10.45 [facility] [address] [place] [id number] 06/27/2024 Adriana Young Severe persistent asthma, uncomplicated J45.50 ; Other chronic sinusitis J32.8 ; Chronic cough R05.3 ; Pneumonia, unspecified organism J18.9 ; Gastro-esophageal reflux disease without esophagitis K21.9 ; Allergic rhinitis due to pollen J30.1 ; Other allergic rhinitis J30.89 and Other chronic allergic conjunctivitis H10.45 [facility] [address] [place] [id number] 07/18/2024 Elia De La Cruz Allergic rhinitis du e to pollen J30.1 ; Allergic rhinitis due to animal (cat) (dog) hair and dander J30.81 ; Other allergic rhinitis J30.89 and Other chronic allergic conjunctivitis H10.45 [facility] [address] [place] [id number] 07/25/2024 Adriana Young Severe persistent asthma, uncomplicated J45.50 ; Other chronic sinusitis J32.8 ; Chronic cough R05.3 ; Mucopurulent chronic bronchitis J41.1 ; Pneumonia, unspecified organism J18.9 ; Gastro-esophageal reflux disease without esophagitis K21.9 ; Allergic rhinitis due to pollen J30.1 ; Other allergic rhinitis J30.89 ; Other chronic allergic conjunctivitis H10.45 and Personal history of pneumonia (recurrent) Z87.01 [facility] [address] [place] [id number] 08/15/2024 Elia De La Cruz Allergic rhinitis du e to pollen J30.1 ; Allergic rhinitis due to animal (cat) (dog) hair and dander J30.81 ; Other allergic rhinitis J30.89 and Other chronic allergic conjunctivitis H10.45 [facility] [address] [place] [id number] 08/29/2024 Elia De La Cruz Severe persistent asthma, uncomplicated J45.50 [facility] [address] [place] [id number] 09/12/2024 Elia De La Cruz Allergic rhinitis du e to pollen J30.1 ; Allergic rhinitis due to animal (cat) (dog) hair and dander J30.81 ; Other allergic rhinitis J30.89 and Other chronic allergic conjunctivitis H10.45 [facility] [address] [place] [id number] 09/26/2024 Elia De La Cruz Severe persistent asthma, uncomplicated J45.50 [facility] [address] [place] [id number] 10/10/2024 Elia De La Cruz Allergic rhinitis du e to pollen J30.1 ; Allergic rhinitis due to animal (cat) (dog) hair and dander J30.81 ; Other allergic rhinitis J30.89 and Other chronic allergic conjunctivitis H10.45 [facility] [address] [place] [phone] 03/25/2024 Adriana MAHAJAN [address] [phone] 05/07/2024 Adriana Dutton [address] [phone] 05/27/2024 Adriana Dutton Allergic rhinitis due to pollen J30.[address] [phone] 06/04/2024 Adriana Dutton [place] [address] [address] [place] [phone] 06/20/2024 Adriana Dutton [address] [phone] 09/17/2024 Adriana Dutton Assessments Encounter Date Diagnosis (ICD Code) Assessment Notes Treatment Notes Treatment Clinical Notes Section Notes 11/07/2023 Allergic rhinitis due to pollen (ICD-10 - J30.1) 11/09/2023 Severe persistent asthma, uncomplicated (ICD-10 - J45.50) 12/07/2023 Other chronic sinusitis (ICD-10 - J32.8) Continues to have sinus pressure and drainage. Exam is now improved s/p Augmentin and steroids -seen by maia Carr for sinus CT. Continue Astelin - sinus surgery ~5 yrs ago - recent labs checked to reevaluate her immune system. GAMs normal. Pneumo protection - last Pneumovax-23 in 2020 with Prevnar-13 in 2018. She just received Prevnar-20 and now with protection -Continue to follow frequency of infection 12/07/2023 Severe persistent asthma, uncomplicated (ICD-10 - J45.50) Lissette has persistent asthma, with prior spirometry demonstrating reversiblity c/w asthma. Prior methacholine challenge per Pulmonary was normal x 2. Tespire added as she continued to have chronic cough and rattling in chest leading to recurrent steroids and antibiotics. She had PNA confirmed by CXR in 06/2021 and 11/2022. She is doing very well with minimal coughing up until the last few days. She did forget her PPI at that time, which makes me think this is driven by reflux. -Arturo history is complex. Cough is likely mult-factorial and she clinically does better on inhalers. Prior to starting Tezspire she would have abnormal lung exam with rhonchi and wheezing. -Last month having increased coughing and dyspnea. This is proceeded by an ER visit for reflux. She later had steroids and azithromycin and is doing better -Gerri again encouraged her to make a GI f/u. see below but needs additional reflux meds until appt. I suspect her prior PNA was aspiration PNA; last occurence in 11/2022 -Last CT in 12/2021 was normal -Cough complicated by co-morbid sinus disease, allergies and reflux as statd -Continue Trelegy. Doesnt want to continue Breztri -Spirometry last visit suggestive of restriction but TLC not measured. Consider sweat test, despite age I've seen some CF variants picked up. Has seen benefit with moving protonix to evening -Tezpire given in office today -return in 1 month for Tezspire 12/13/2023 Allergic rhinitis due to pollen (ICD-10 - J30.1) 01/04/2024 Severe persistent asthma, uncomplicated (ICD-10 - J45.50) 01/10/2024 Allergic rhinitis due to pollen (ICD-10 - J30.1) 02/08/2024 Allergic rhinitis due to pollen (ICD-10 - J30.1) 02/01/2024 Severe persistent asthma, uncomplicated (ICD-10 - J45.50) 02/29/2024 Other chronic sinusitis (ICD-10 - J32.8) Continues to have sinus pressure and drainage. Exam is now improved s/p Augmentin and steroids -seen by maia Carr for sinus CT. Continue Astelin - sinus surgery ~5 yrs ago - recent labs checked to reevaluate her immune system. GAMs normal. Pneumo protection - last Pneumovax-23 in 2020 with Prevnar-13 in 2017. She just received Prevnar-20 and now with protection -Continue to follow frequency of infection - plan on rechecking PI labs Fall/winter 202302/29/2024 Severe persistent asthma, uncomplicated (ICD-10 - J45.50) Lissette has persistent asthma, with prior spirometry demonstrating reversiblity c/w asthma. Prior methacholine challenge per Pulmonary was normal x 2. Tespire added as she continued to have chronic cough and rattling in chest leading to recurrent steroids and antibiotics. She had PNA confirmed by CXR in 06/2021 and 11/2022. She is doing very well with minimal coughing up until the last few days. She did forget her PPI at that time, which makes me think this is driven by reflux. -Arturo history is complex. Cough is likely mult-factorial and she clinically does better on inhalers. Prior to starting Tezspire she would have abnormal lung exam with rhonchi and wheezing. -Just finished abx and steroids - clear on exam -see below but needs additional reflux meds until appt. I suspect her prior PNA was aspiration PNA; last occurence in 11/2022 -Last CT in 12/2021 was normal -Cough complicated by co-morbid sinus disease, allergies and reflux as stated -Continue Trelegy. Doesnt want to continue Breztri -Spirometry last visit suggestive of restriction but TLC not measured. Consider sweat test, despite age I've seen some CF variants picked up. Has seen benefit with moving protonix to evening -Tezpire given in office today -return in 1 month for Tezspire 03/07/2024 Allergic rhinitis due to pollen (ICD-10 - J30.1) 04/01/2024 Severe persistent asthma, uncomplicated (ICD-10 - J45.50) 04/18/2024 Allergic rhinitis due to pollen (ICD-10 - J30.1) 05/16/2024 Allergic rhinitis due to pollen (ICD-10 - J30.1) 04/29/2024 Severe persistent asthma, uncomplicated (ICD-10 - J45.50) 05/23/2024 Allergic rhinitis due to pollen (ICD-10 - J30.1) 05/27/2024 Allergic rhinitis due to pollen (ICD-10 - J30.1) 05/27/2024 Allergic rhinitis due to pollen (ICD-10 - J30.1) 06/20/2024 Allergic rhinitis due to pollen (ICD-10 - J30.1) 06/27/2024 Other chronic sinusitis (ICD-10 - J32.8) Continues to have sinus pressure and drainage. Exam is now improved s/p Augmentin and steroids -seen by Dr. Francois Junior, slated for sinus CT. Continue Astelin - sinus surgery ~5 yrs ago - recent labs checked to reevaluate her immune system. GAMs normal. Pneumo protection - last Pneumovax-23 in 2020 with Prevnar-13 in 2017. She received Prevnar-20 and now with protection -Continue to follow frequency of infection - plan on rechecking PI labs Fall/winter 202306/27/2024 Severe persistent asthma, uncomplicated (ICD-10 - J45.50) Lissette has persistent asthma, with prior spirometry demonstrating reversiblity c/w asthma. Prior methacholine challenge per Pulmonary was normal x 2. Tespire added as she continued to have chronic cough and rattling in chest leading to recurrent steroids and antibiotics. She had PNA confirmed by CXR in 06/2021 and 11/2022. She is doing very well with minimal coughing up until the last few days. She did forget her PPI at that time, which makes me think this is driven by reflux. -Arturo history is complex. Cough is likely mult-factorial and she clinically does better on inhalers. Prior to starting Tezspire she would have abnormal lung exam with rhonchi and wheezing. -No recent abx or OCS use! -see below but needs additional reflux meds until appt. I suspect her prior PNA was aspiration PNA; last occurence in 11/2022 -Last CT in 12/2021 was normal -Cough complicated by co-morbid sinus disease, allergies and reflux as stated -Continue Trelegy. Doesnt want to continue Breztri -Spirometry last visit suggestive of restriction but TLC not measured. Consider sweat test, despite age I've seen some CF variants picked up. Has seen benefit with moving protonix to evening -Tezpire given in office today -return in 1 month for Tezspire 07/18/2024 Allergic rhinitis due to pollen (ICD-10 - J30.1) 07/25/2024 Severe persistent asthma, uncomplicated (ICD-10 - J45.50) Lissette has persistent asthma, with prior spirometry demonstrating reversiblity c/w asthma. Prior methacholine challenge per Pulmonary was normal x 2. Tespire added as she continued to have chronic cough and rattling in chest leading to recurrent steroids and antibiotics. She had PNA confirmed by CXR in 06/2021 and 11/2022. She is currently on abx and steroids by PCP for bronchitis. Her prior flares in 2023 seem to correspond to reflux. -Arturo history is complex. Cough is likely mult-factorial and she clinically does better on inhalers. Prior to starting Tezspire she would have abnormal lung exam with rhonchi and wheezing. -see below but needs additional reflux management. I suspect her prior PNA was aspiration PNA; last occurence in 11/2022 -Last CT in 12/2021 was normal -Cough complicated by co-morbid sinus disease, allergies and reflux as stated -Continue Trelegy. Doesnt want to continue Breztri -Spirometry last visit suggestive of restriction but TLC not measured. Consider sweat test, despite age I've seen some CF variants picked up. Has seen benefit with moving protonix to evening. Recommend input by Dr. Zuelta -Tezpire given in office today -return in 1 month for Tezspire b 07/25/2024 Other chronic sinusitis (ICD-10 - J32.8) Continues to have sinus pressure and drainage. Exam is now improved s/p Augmentin and steroids -seen by Dr. Francois Junior, slated for sinus CT. Continue Astelin - sinus surgery ~5 yrs ago - labs checked to reevaluate her immune system. GAMs normal. Pneumo protection - last Pneumovax-23 in 2020 with Prevnar-13 in 2017. She received Prevnar-20 and now with protection. Due for recheck now - wait til she is off steroids. -Continue to follow frequency of infection b 08/15/2024 Allergic rhinitis due to pollen (ICD-10 - J30.1) 08/29/2024 Severe persistent asthma, uncomplicated (ICD-10 - J45.50) 09/12/2024 Allergic rhinitis due to pollen (ICD-10 - J30.1) 09/26/2024 Severe persistent asthma, uncomplicated (ICD-10 - J45.50) 10/10/2024 Allergic rhinitis due to pollen (ICD-10 - J30.1) 10/10/2024 Allergic rhinitis due to animal (cat) (dog) hair and dander (ICD-10 - J30.81) 09/12/2024 Allergic rhinitis due to animal (cat) (dog) hair and dander (ICD-10 - J30.81) 08/15/2024 Allergic rhinitis due to animal (cat) (dog) hair and dander (ICD-10 - J30.81) 07/25/2024 Chronic cough (ICD-10 - R05.3) Chronic multi-factorial cough with AR, GERD, RAD, and VCD. - see plan above - She has clearly seen a change in her cough by increasing her SCIT frequency. Will plan on reformualtion - AAP reviewed. Rinse out mouth after use of Breo. b 07/18/2024 Allergic rhinitis due to animal (cat) (dog) hair and dander (ICD-10 - J30.81) 06/27/2024 Chronic cough (ICD-10 - R05.3) Chronic multi-factorial cough with AR, GERD, RAD, and VCD. - see plan above - She has clearly seen a change in her cough by increasing her SCIT frequency. Will plan on reformualtion - AAP reviewed. Rinse out mouth after use of Breo. 06/20/2024 Allergic rhinitis due to animal (cat) (dog) hair and dander (ICD-10 - J30.81) 05/27/2024 Allergic rhinitis due to animal (cat) (dog) hair and dander (ICD-10 - J30.81) 05/23/2024 Allergic rhinitis due to animal (cat) (dog) hair and dander (ICD-10 - J30.81) 05/16/2024 Allergic rhinitis due to animal (cat) (dog) hair and dander (ICD-10 - J30.81) 04/18/2024 Allergic rhinitis due to animal (cat) (dog) hair and dander (ICD-10 - J30.81) 03/07/2024 Allergic rhinitis due to animal (cat) (dog) hair and dander (ICD-10 - J30.81) 02/29/2024 Chronic cough (ICD-10 - R05.3) Chronic multi-factorial cough with AR, GERD, RAD, and VCD. - see plan above - She has clearly seen a change in her cough by increasing her SCIT frequency. Will plan on reformualtion - AAP reviewed. Rinse out mouth after use of Breo. 02/08/2024 Allergic rhinitis due to animal (cat) (dog) hair and dander (ICD-10 - J30.81) 01/10/2024 Allergic rhinitis due to animal (cat) (dog) hair and dander (ICD-10 - J30.81) 12/13/2023 Allergic rhinitis due to animal (cat) (dog) hair and dander (ICD-10 - J30.81) 12/07/2023 Chronic cough (ICD-10 - R05.3) Chronic multi-factorial cough with AR, GERD, RAD, and VCD. - see plan above - She has clearly seen a change in her cough by increasing her SCIT frequency. Will plan on reformualtion - AAP reviewed. Rinse out mouth after use of Breo. 11/07/2023 Allergic rhinitis due to animal (cat) (dog) hair and dander (ICD-10 - J30.81) 11/07/2023 Other allergic rhinitis (ICD-10 - J30.89) 12/13/2023 Other allergic rhinitis (ICD-10 - J30.89) 12/07/2023 Pneumonia, unspecified organism (ICD-10 - J18.9) Diagnosed with PNA by [facility] in 06/[address] De La Cruz with steroids for yellow zone. Pneumonia again recently in Jun 2021 treated with abx and steroids per [facility]. Last PNA was in 11/2022 - Consider aspiration PNA as prior episodes have had GI symptoms as well, leading to pneumonia. She feels spacing out her SCIT leads to recurrent cough, tolerating Q2 wk dosing without issues Last pneumococcal titer was normal in March 2021 (), recheck in 06/2022 show titer decreased to 14/. Now titer s/p Prevnar is protected 01/10/2024 Other allergic rhinitis (ICD-10 - J30.89) 02/08/2024 Other allergic rhinitis (ICD-10 - J30.89) 02/29/2024 Pneumonia, unspecified organism (ICD-10 - J18.9) Diagnosed with PNA by [facility] in 06/[address] De La Cruz with steroids for yellow zone. Pneumonia again recently in Jun 2021 treated with abx and steroids per [facility]. Last PNA was in 11/2022 - Consider aspiration PNA as prior episodes have had GI symptoms as well, leading to pneumonia. She feels spacing out her SCIT leads to recurrent cough, tolerating Q2 wk dosing without issues Last pneumococcal titer was normal in March 2021 (), recheck in 06/2022 show titer decreased to 14/. Now titer s/p Prevnar is protected 03/07/2024 Other allergic rhinitis (ICD-10 - J30.89) 04/18/2024 Other allergic rhinitis (ICD-10 - J30.89) 05/16/2024 Other allergic rhinitis (ICD-10 - J30.89) 05/23/2024 Other allergic rhinitis (ICD-10 - J30.89) 05/27/2024 Other allergic rhinitis (ICD-10 - J30.89) 06/20/2024 Other allergic rhinitis (ICD-10 - J30.89) 06/27/2024 Pneumonia, unspecified organism (ICD-10 - J18.9) Diagnosed with PNA by [facility] in 06/[address] De La Cruz with steroids for yellow zone. Pneumonia again recently in Jun 2021 treated with abx and steroids per [facility]. Last PNA was in 11/2022 - Consider aspiration PNA as prior episodes have had GI symptoms as well, leading to pneumonia. She feels spacing out her SCIT leads to recurrent cough, tolerating Q2 wk dosing without issues Last pneumococcal titer was normal in March 2021 (), recheck in 06/2022 show titer decreased to 14/23. Now titer s/p Prevnar is 20/23 protected 07/18/2024 Other allergic rhinitis (ICD-10 - J30.89) 07/25/2024 Mucopurulent chronic bronchitis (ICD-10 - J41.1) Recommend input by Dr. Merlyn hernandez 08/15/2024 Other allergic rhinitis (ICD-10 - J30.89) 09/12/2024 Other allergic rhinitis (ICD-10 - J30.89) 10/10/2024 Other allergic rhinitis (ICD-10 - J30.89) 10/10/2024 Other chronic allergic conjunctivitis (ICD-10 - H10.45) 09/12/2024 Other chronic allergic conjunctivitis (ICD-10 - H10.45) 08/15/2024 Other chronic allergic conjunctivitis (ICD-10 - H10.45) 07/25/2024 Pneumonia, unspecified organism (ICD-10 - J18.9) Diagnosed with PNA by [facility] in 06/[address] De La Cruz with steroids for yellow zone. Pneumonia again recently in Jun 2021 treated with abx and steroids per [facility]. Last PNA was in 11/2022 - Consider aspiration PNA as prior episodes have had GI symptoms as well, leading to pneumonia. She feels spacing out her SCIT leads to recurrent cough, tolerating Q2 wk dosing without issues Last pneumococcal titer was normal in March 2021 (20/), recheck in 06/2022 show titer decreased to 14/23. Now titer s/p Prevnar is 20/23 protected- see plan above, recheck labs now b 07/18/2024 Other chronic allergic conjunctivitis (ICD-10 - H10.45) 06/27/2024 Gastro-esophageal reflux disease without esophagitis (ICD-10 - K21.9) Suspect reflux is driving some of her chronic cough. moving protonix to evening has really helped. -recommend increasing Pepcid to BID until she can see GI 06/20/2024 Other chronic allergic conjunctivitis (ICD-10 - H10.45) 05/27/2024 Other chronic allergic conjunctivitis (ICD-10 - H10.45) 05/16/2024 Other chronic allergic conjunctivitis (ICD-10 - H10.45) 05/23/2024 Other chronic allergic conjunctivitis (ICD-10 - H10.45) 04/18/2024 Other chronic allergic conjunctivitis (ICD-10 - H10.45) 03/07/2024 Other chronic allergic conjunctivitis (ICD-10 - H10.45) 02/29/2024 Gastro-esophageal reflux disease without esophagitis (ICD-10 - K21.9) Suspect reflux is driving some of her chronic cough. moving protonix to evening has really helped. -recommend increasing Pepcid to BID until she can see GI 02/08/2024 Other chronic allergic conjunctivitis (ICD-10 - H10.45) 01/10/2024 Other chronic allergic conjunctivitis (ICD-10 - H10.45) 12/07/2023 Gastro-esophageal reflux disease without esophagitis (ICD-10 - K21.9) Suspect reflux is driving some of her chronic cough. moving protonix to evening has really helped. -recommend increasing Pepcid to BID until she can see GI 12/13/2023 Other chronic allergic conjunctivitis (ICD-10 - H10.45) 11/07/2023 Other chronic allergic conjunctivitis (ICD-10 - H10.45) 12/07/2023 Allergic rhinitis due to pollen (ICD-10 - J30.1) Yamila clearly suffers from atopic disease based upon our prior skin testing and history. - Continues on medications as above and SCIT, increasing frequency PRN, although prefers Q1 week dosing , doing well back on Q2. - Previously discussed another reformulation given continued symptoms and lower airway flares, and need for frequent dosing. She is on board now due for new vial remake - S/P cluster with reformulated SCIT - Hold SCIT on days of lower airway symptoms 02/29/2024 Allergic rhinitis due to pollen (ICD-10 - J30.1) Yamila clearly suffers from atopic disease based upon our prior skin testing and history. - Continues on medications as above and SCIT, increasing frequency PRN, although prefers Q1 week dosing , doing well back on Q2. - Previously discussed another reformulation given continued symptoms and lower airway flares, and need for frequent dosing. She is on board now due for new vial remake - S/P cluster with reformulated SCIT - Hold SCIT on days of lower airway symptoms 06/27/2024 Allergic rhinitis due to pollen (ICD-10 - J30.1) Yamila clearly suffers from atopic disease based upon our prior skin testing and history. - Continues on medications as above and SCIT, increasing frequency PRN, although prefers Q1 week dosing , doing well back on Q2. - Previously discussed another reformulation given continued symptoms and lower airway flares, and need for frequent dosing. She is on board now due for new vial remake - S/P cluster with reformulated SCIT - Hold SCIT on days of lower airway symptoms 07/25/2024 Gastro-esophageal reflux disease without esophagitis (ICD-10 - K21.9) Suspect reflux is driving some of her chronic cough. moving protonix to evening has really helped -She has not returned to GI despite my recommendation as she was unable to hold meds for pH probe. Again addressed as symptoms will lead to lower airway symptoms. b 06/27/2024 Other allergic rhinitis (ICD-10 - J30.89) Continue avoidance, meds and SCIT per schedule. Increase frequency PRN 07/25/2024 Allergic rhinitis due to pollen (ICD-10 - J30.1) Yamila clearly suffers from atopic disease based upon our prior skin testing and history. - Continues on medications as above and SCIT, increasing frequency PRN, although prefers Q1 week dosing , doing well back on Q2. - Previously discussed another reformulation given continued symptoms and lower airway flares, and need for frequent dosing. She is on board now due for new vial remake - S/P cluster with reformulated SCIT - Hold SCIT on days of lower airway symptoms b 02/29/2024 Other allergic rhinitis (ICD-10 - J30.89) Continue avoidance, meds and SCIT per schedule. Increase frequency PRN 12/07/2023 Other allergic rhinitis (ICD-10 - J30.89) Continue avoidance, meds and SCIT per schedule. Increase frequency PRN 12/07/2023 Other chronic allergic conjunctivitis (ICD-10 - H10.45) Encouraged allergy avoidance measures and meds as above. If symptoms persist, consider adding additional medications including intraocular antihistamine/mast cell stabilizer, PRN and continue SCIT as an adjunctive measure. Currently, only using Restasis per chemical dependency professional 02/29/2024 Other chronic allergic conjunctivitis (ICD-10 - H10.45) Encouraged allergy avoidance measures and meds as above. If symptoms persist, consider adding additional medications including intraocular antihistamine/mast cell stabilizer, PRN and continue SCIT as an adjunctive measure. Currently, only using Restasis per chemical dependency professional 06/27/2024 Other chronic allergic conjunctivitis (ICD-10 - H10.45) Encouraged allergy avoidance measures and meds as above. If symptoms persist, consider adding additional medications including intraocular antihistamine/mast cell stabilizer, PRN and continue SCIT as an adjunctive measure. Currently, only using Restasis per chemical dependency professional 07/25/2024 Other allergic rhinitis (ICD-10 - J30.89) Continue avoidance, meds and SCIT per schedule. Increase frequency PRN b 07/25/2024 Other chronic allergic conjunctivitis (ICD-10 - H10.45) Encouraged allergy avoidance measures and meds as above. If symptoms persist, consider adding additional medications including intraocular antihistamine/mast cell stabilizer, PRN and continue SCIT as an adjunctive measure. Currently, only using Restasis per chemical dependency professional b 07/25/2024 Personal history of pneumonia (recurrent) (ICD-10 - Z87.01) b 06/13/2024 Other 08/22/2024 Other 11/09/2023 Other 12/07/2023 Other 01/04/2024 Other 02/01/2024 Other 02/29/2024 Other 04/01/2024 Other 04/29/2024 Other 06/27/2024 Other 07/25/2024 Other b 08/29/2024 Other 09/26/2024 Other Plan Of Treatment Pending Test Test Name Order Date STREPTOCOCCUS PNEUMONIAE IGG AB (23 SERO TYPES) 07/25/2024 STREPTOCOCCUS PNEUMONIAE IGG AB (23 SERO TYPES) 07/21/2022 DIPHTHERIA ANTITOXOID AND TETANUS ANTITO XOID ANTIBODIES 07/25/2024 VITAMIN D, 25-OH, TOTAL, [place] 07/25/2024 VITAMIN D, 25-OH, [place], [place] 10/22/2020 HAEMOPHILUS INFLUENZAE B ANTIBODY, IGG 0 07/25/2024 IMMUNOGLOBULINS A/E/G/M,SERUM 07/25/2024 Next Appt Details Provider Name:Elia ZapataNathaniel De La Cruz , 10/24/2024 01:30:00 PM, [address], [address], Provider Name:Elia Lewis Jono , 11/07/2024 01:00:00 PM, [address] [facility], [address], [place], [address], Insurance Providers Payer Name Payer Address Payer Phone Subscriber Number Group Number Insured Name Patient Relationship to Insured Coverage Start Date Coverage End Date [employer] Medicare Complete [address] [place] [address] [id number] Yamila Peter Self - patient is the insured 4 [facility] Medicare [address] [address] [place] [address] [id number] Yamila Peter Self - patient is the insured 5 Medical (General) History Medical History History ICD Code Rosacea conjunctivitis Menopause, menopausal Fibrocystic disease of breast ASTHMA NOS Neck disk degeneration Allergic rhinitis due to pollen Allergic rhinitis due to animal (cat) (d og) hair and dander Other allergic rhinitis Other chronic allergic conjunctivitis Shortness of breath Rash and other nonspecific skin eruption Moderate persistent asthma, uncomplicate d Acute frontal sinusitis, unspecified Surgical History Surgery Date(Month/Year) cholecystectomy 2009 1978 Tonsillectomy 1955 Sinus Surgery 2016 tooth extraction 05/05/2022 lithotripsy 10/21/2022 right cataract 01/2023 left cataract 04/19/23 Hospitalization History Reason Date(Month/Year) 10/1978
--- OUTSIDE RECORDS SUMMARY | 2024-10-17 12:59 | XMS_ITS | Clinical Summary ---
Author Organization [facility] Address [address] [place] [address] Care Team Providers Care Pig Machine Supervisor Name Role Phone Atilio Romo MD Primary Care Provider [phone] Allergies Active Allergy Reactions Criticality Noted Date Comments Latex Moxifloxacin Medications PROAIR HFA 90 mcg/actuation inhaler INL 2 PFS PO Q 4 TO 6 H PRN AND PER THE ASTHMA ACTION PLAN 1 02/15/20 18 Active LOPREEZA 1-0.5 mg per tablet TK 1 T PO QD 4 01/23/20 18 Active FLUZONE HIGH-DOSE , PF, 180 mcg/0.5 mL syringe ADM 0.5ML [...] (06/28/2022): Added automatically from request for surgery [id number] Cecal polyp 09/14/2020 Overview (09/14/2020): Added automatically from request for surgery [id number] H/O esophageal ulcer 09/14/2020 Overview (09/14/2020): Added automatically from request for surgery [id number] Paradoxical vocal fold motion disorder 9 Assessment & Plan (02/12/2021 12:48 PM CDT): Given that she's symptomatic again, I have recommended another series of laryngeal control therapy. Although she's still been practicing exercises, they don't appear to be quite right. Assessment & Plan (07/03/2018 11:00 AM [employer]): I have recommended laryngeal control therapy here at the [facility] in order to control the patient's symptoms. The patient's diagnosis was discussed in detail along with how therapy can improve it. Fibrocystic breast changes 07/02/2015 Abnormal findings on diagnostic imaging of justyna muñiz 05/28/2014 Asthma Encounters Date Type Department Care Team Description 08/12/2024 7:20 AM CDT - 08/12/2024 11:59 PM CDT Hospital Encounter [facility] Breast [facility] ([facility]) [address] [place] [id number] Screening mammogram, encounter for Discharge Disposition: Discharge to home or self care from Last 3 Months Immunizations Immunization Administration Dates Next Due Influenza, Unspecified 01/27/2020,01/16/2018 Surgical History Surgery Date Site/Laterality Comments CHOLECYSTECTOMY SINUS SURGERY TONSILLECTOMY COLOSTOMY UPPER GASTROINTESTINAL ENDOSCOPY SECTION Medical History Medical History Date Comments Allergic rhinitis Asthma Sinusitis Hyperlipidemia Pneumonia Respiratory distress Chronic cough GERD (gastroesophageal reflux disease) Colon polyp Family History Medical History Relation Name Comments Arthritis Father Heart disease Father Lung disease Father Breast cancer Father's Sister Diabetes Mother Heart disease Mother Colon cancer Niece 1 Breast cancer Niece 2 Ovarian cancer Niece 3 Relation Name Status Comments Father Father's Sister Mother Alive Niece 1 Alive Niece 2 Alive Niece 3 Alive Social History Tobacco Use Types Packs/Day Years [...] on file Legal Sex Female 4:41 AM [employer] Gender Identity Female 01/27/2020 6:48 AM CDT Sexual Orientation Not on file Obstetrics History Last Filed Vital Signs Vital Sign Reading [...] 08/10/2022 9:31 AM CDT Plan of Treatment Health Maintenance Due Date Last Done Comments Depression Screening 1950 Hepatitis C Screening 1950 Osteoporosis Screening-Bone Density Scan 1950 DTaP/Tdap/Td Vaccine (1 - Tdap) 1961 Hepatitis B Screening 1968 Well Visit 65+ 11/25/2015 Fall Risk Assessment 10/08/2021 10/08/2020 Influenza Vaccine (Season Ended) 2024 01/27/2020, 01/08/2019, 01/16/2018, Additional history exists Breast Cancer Screening-Mammogram 08/12/2025 08/12/2024, 05/26/2022, 04/26/2021, Additional history exists Colon Cancer Screening-Colonoscopy 08/10/2032 08/10/2022, 10/08/2020 Pneumococcal vaccine 65+ Completed 019, 01/04/2018, 01/04/2010 Zoster Vaccine Completed 04/05/2019, 01/08/2019 Colon Cancer Screening-CT Colonography Discontinued 08/10/2022, 10/08/2020 Colon Cancer Screening-DNA Stool Discontinued 08/11/19 23, 10/08/2020 Colon Cancer Screening-FIT Discontinued 08/10/2022, Colon Cancer Screening-Sigmoidoscopy Discontinued 08/10/2022, 10/08/2020 Procedures Procedure Name Priority Date/Time Associated Diagnosis [...] compared to prior imaging studies performed at [facility] on 12/04/2019, 04/26/2021 and 05/26/2022. There are [...] compared to prior imaging studies performed at [facility] on 12/04/2019, 04/26/2021 and 05/26/2022. There are [...] Female Attending MD: Forest Gallegos M.D. Room: [facility] 9 Note Status: Finalized Procedure: [...] the bowel preparation was evaluatedusing the BBPS ([place] Bowel Preparation Scale) withscores of: Right Colon = 3, Transverse Colon = 3 and Left Colon = 3 (entire mucosa seen well with no residual staining, small fragments of stool or opaqueliquid). The total BBPS score equals 9. The bowelpreparation used was polyethylene glycol (PEG) via split dose instruction. The scope was passed under directvision. The [id number] endoscope was introduced through the anus and [...] today's procedure, please call my office at [phone] and speak to my nurse. - Repeat colonoscopy in 3 years for adenoma surveillance. - Return to referring provider as indicated. - In the unusual situation that you developabdominal pain, bleeding or other significant problems in the days following this procedure please call my office [phone]). After hours and eveningsplease call [phone] and speak to the GI fellow reginaldo. [...] procedure. Electronically signed by Forest Gallegos MD Foerst Gallegos M.D. 08/10/2022 10:23:27 AM . Number of Addenda: 0 Note Initiated On: 08/10/2022 9:55 AM Recognized by the [employer] for promoting quality in endoscopy us Forest Gallegos MD ENDOSCOPY PROCEDURES Final Result from Last 3 Months or Most Recently Relevant to Health Maintenance Insurance [employer] PPO [employer] PPO Advance Directives For more information, please contact: [phone] * Full Code (Latest Code Status on File) Date Activated Date Inactivated Comments 08/10/2022 9:17 AM 08/10/2022 3:33 PM * Full Code Date Activated Date Inactivated Comments 10/08/2020 1:39 PM 10/08/2020 8:47 PM Care Teams Pig Machine Supervisor Relationship Specialty Start Date End Date Atilio Romo MD PCP - General 09/07/17
--- OUTSIDE RECORDS SUMMARY | 2024-10-17 12:59 | XMS_ITS | Continuity of Care Document ---
Author Organization [facility] Address [address] [address] [place] [address] Phone Care Team Providers Care Lead Driver Name Role Phone Atilio Romo MD Unavailable Unavailable Allergies, Adverse Reactions, Alerts Substance Reaction Status Criticality latex Active No Information MOXIFLOXACIN HCL Active No Informat ion Medications Medication Instructions Dosage Effective Dates (start - stop) Status Comments prednisone 20 mg tablet take 3 Tablet by oral route every day 60 MG - Active Airsupra 90 mcg-80 mcg/actuation HFA aerosol inhaler inhale 2 puff by inhalation route as needed :not to exceed 6 doses per day as needed 2.00 puff - Active PRN for sob Protonix 40 mg tablet,delayed release take 1 tablet by oral route every day 40 MG - Active Crestor 5 mg tablet take 1 tablet by oral route every day 5 MG - Active Trelegy Ellipta 100 mcg-62.5 mcg-25 mcg powder for inhalation inhale 1 puff by inhalation route every day at the same time each day 1.00 puff - Active Zyrtec 10 mg capsule take one daily - Active Procedures Procedure Date OFFICE/OUTPATIENT VISIT, EST OFFICE/OUTPATIENT VISIT, EST OFFICE/OUTPATIENT VISIT, EST OFFICE/OUTPATIENT VISIT, EST OFFICE/OUTPATIENT VISIT, EST OFFICE/OUTPATIENT VISIT, EST PREV VISIT, EST, 65 & OVER OFFICE/OUTPATIENT VISIT, EST OFFICE/OUTPATIENT VISIT, EST OFFICE/OUTPATIENT VISIT, EST OFFICE/OUTPATIENT VISIT, EST PREV VISIT, EST, 65 & OVER OFFICE/OUTPATIENT VISIT, EST OFFICE/OUTPATIENT VISIT, EST PREV VISIT, EST, 65 & OVER OFFICE/OUTPATIENT VISIT, EST OFFICE/OUTPATIENT VISIT, EST OFFICE/OUTPATIENT VISIT, EST OFFICE/OUTPATIENT VISIT, EST OFFICE/OUTPATIENT VISIT, EST PREV VISIT, NEW, 65 & OVER OFFICE/OUTPATIENT VISIT, NEW PREV VISIT, EST, AGE 40-64 OFFICE/OUTPATIENT VISIT, EST PREV VISIT, NEW, AGE 40-64 OFFICE/OUTPATIENT VISIT, NEW Advance Directives Directive Yes / No Effective Date File Name No Information Encounters Encounter Description Practice Location Reason(s) For Visit Diagnoses Date Provider Providers Copied on Encounter OFFICE/OUTPA TIENT VISIT, [facility], [address] [place], [place], [address], [place] tel:[phone] [facility] sinus1 (chief complaint) Acute sinusitisMild intermittent asthma, uncomplicated Jul- 5 Demetrius Muhammad [address] [place], [place], [address] , [place]. [phone] OFFICE/OUTPA TIENT VISIT, [facility], [address] [place], [place], [address], [place] tel:[phone] [facility] asthma1 (chief complaint) HLP (chief complaint) GERD1 (chief complaint) Mild persistent asthma, uncomplicatedAcute bronchitisGERD w/o esophagitisMixed hyperlipidemia Jun- 5 Demetrius Trimble. [address], [place], [place], [address] , [place]. tel:[phone] OFFICE/OUTPA TIENT VISIT, [facility], [address] [place], [address], [place] tel:[phone] [facility] cough1 (chief complaint) HLP (chief complaint) GERD1 (chief complaint) Mild intermittent asthma, uncomplicatedAcute bronchitisMixed hyperlipidemiaGERD w/o esophagitis 4 Demetrius Trimble. [address], [place], [place], [address] , [place]. tel:[phone] OFFICE/OUTPA TIENT VISIT, [facility], [address], [place], [place], [address], [place] tel:[phone] [facility] cough1 (chief complaint) Acute bronchitisMild intermittent asthma, uncomplicated 4 Demetrius Trimble. [address], [place], [place], [address] , [place]. tel:[phone] OFFICE/OUTPA TIENT VISIT, [facility], [address], [place], [place], [address], [place] tel:[phone] [facility] pneumonia1 (chief complaint) leukocytos is1 (chief complaint) EKG (chief complaint) cataract1 (chief complaint) LeukocytosisAbnorma l electrocardiogram [ECG] [EKG]PneumoniaCatar act in diseases classified elsewhere 3 Demetrius Trimble. [address], [place], [place], [address] , [place]. tel:[phone] OFFICE/OUTPA TIENT VISIT, [facility], [address] [place], [address], [place] tel:[phone] [facility] pneumnoia1 (chief complaint) HLP (chief complaint) GERD1 (chief complaint) PneumoniaMixed hyperlipidemiaAbnor mal electrocardiogram [ECG] [EKG]GERD w/o esophagitisLeukocyt osis 3 Demetrius Trimble. [address], [place], [place], [address] , [place]. tel:[phone] PREV VISIT, EST, 65 & OVER [facility], [address], [place], [place], [address], [place] tel:[phone] [facility] physical (chief complaint) Encounter for general adult medical exam w abnormal findingsMixed hyperlipidemiaEsoph agitisMild intermittent asthma, uncomplicatedAbnorm al electrocardiogram [ECG] [EKG]Polyp of colon 3 Demetrius Muhammad [address], [address], [place], [place], [address] , [place]. tel:[phone] OFFICE/OUTPA TIENT VISIT, [facility], [address] [place], [address], [place] tel:[phone] [facility] COVID (chief complaint) Mild intermittent asthma, uncomplicatedViral infection 2 Demetrius Trimble. [address], [place], [place], [address] , [place]. tel:[phone] OFFICE/OUTPA TIENT VISIT, [facility], [address] [place], [address], [place] tel:[phone] [facility] HLP (chief complaint) GERD1 (chief complaint) asthma1 (chief complaint) hematuria1 (chief complaint) Benign essential microscopic hematuriaPolyp of colonGERD w/o esophagitisMild intermittent asthma, uncomplicatedMixed hyperlipidemia 2 Demetrius Trimble. [address], [place], [place], [address] , [place]. [phone] OFFICE/OUTPA TIENT VISIT, [facility], [address] [place], [address], [place] tel:[phone] [facility] pneumonia1 (chief complaint) hematuria1 (chief complaint) low KCL (chief complaint) HypocalcemiaHypokal emiaHematuriaPneumo niaFamily history of ischemic cardiac disease 2 Demetrius Muhammad [address], [place], [place], [address] , [place]. tel:[phone] [facility], [address] [place], [address], [place] tel:[phone] [facility] HypokalemiaHypocalc emia 1 Romo Atilio. [address], [place], [place], [address] , [place]. tel:[phone] PREV VISIT, EST, 65 & OVER [facility], [address], [place], [place], [address], [place] tel:[phone] [facility] Medicine physical (chief complaint) Encounter for general adult medical exam w abnormal findingsAsthmaPolyp of colonEsophagitisHyp erlipidemiaOther specified disorder of bone density 1 Demetrius Trimble. [address], [place], [place], [address] , [place]. tel:[phone] OFFICE/OUTPA TIENT VISIT, EST [facility], [address], [place], [place], [address], [place] tel:[phone] [facility] pneumonia1 (chief complaint) tubular adenoma1 (chief complaint) PneumoniaGERD with esophagitis, without bleedingPolyp of colon 1 Demetrius Trimble. [address], [place], [place], [address] , [place]. tel:[phone] PREV VISIT, EST, 65 & OVER [facility], [address], [place], [place], [address], [place] tel:[phone] [facility] Medicine Physical (chief complaint) Encounter for general adult medical exam w abnormal findingsPolyp of colonHyperlipidemia Other specified disorder of bone densityHypocalcemia AsthmaHyperglycemia 0 Demetrius Trimble. [address], [place], [place], [address] , [place]. tel:[phone] OFFICE/OUTPA TIENT VISIT, EST [facility], [address] [place], [address], [place] tel:[phone] [facility] osteopenia 1 (chief complaint) HLP (chief complaint) GERD1 (chief complaint) GERD w/ esophagitisHyperlip idemiaPolyp of colonOther specified disorder of bone density 0 Demetrius Trimble. [address], [place], [place], [address] , [place]. [phone] OFFICE/OUTPA TIENT VISIT, [facility], [address], [place], [place], [address], [place] tel:[phone] [facility] colon polyp1 (chief complaint) HLP (chief complaint) mumur1 (chief complaint) GERD w/ esophagitisPolyp of colonHyperlipidemia Cardiac murmur 0 Demetrius Trimble. [address], [place], [place], [address] , [place]. [phone] OFFICE/OUTPA TIENT VISIT, [facility], [address], [place], [place], [address], [place] tel:[phone] [facility] GERD1 (chief complaint) hematuria1 (chief complaint) osteopenia 1 (chief complaint) HematuriaGERD w/ esophagitisPolyp of colonOther specified disorder of bone densityCardiac murmur 9 Demetrius Trimble. [address], [place], [place], [address] , [place]. [phone] Referring Provider: Lamberto Ni, [place], [place], [address]. tel:[phone] OFFICE/OUTPA TIENT VISIT, [facility], [address], [place], [place], [address], [place] tel:[phone] [facility] HLP (chief complaint) folate1 (chief complaint) hematuria1 (chief complaint) GERD1 (chief complaint) HematuriaPolyp of colonGERD w/ esophagitisHyperlip idemiaFolate deficiency 9 Demetrius Trimble. [address], [place], [place], [address] , [place]. tel:[phone] Referring Provider: Lamber[address] Ni [address], [place], [place], [address]. tel:[phone] PREV VISIT, NEW, 65 & OVER [facility], [address], [place], [place], [address], [place] tel:[phone] [facility] Physical (chief complaint) Encounter for general adult medical exam w abnormal findingsAsthmaPolyp of colonIrritable bowel syndrome 9 Demetrius Trimble. [address], [place], [place], [address] , [place]. [phone] Referring Provider: Lamberto Ni [address], [place], [place], [address]. tel:[phone] PREV VISIT, EST, AGE 40-64 [facility], [address], [place], [place], [address], [place] tel:[phone] [facility] Physical (chief complaint) Dietary surveillance and counselingRoutine Medical ExamAsthmaCervicalg iaPain in limbRoutine Medical Exam 5 Demetrius Trimble. [address], [place], [place], [address] , [place]. [phone] Referring Provider: Lamberto Ni [address], [place], [place], [address]. tel:[phone] PREV VISIT, NEW, AGE 40-64 [facility], [address] [place], [address], [place] tel:[phone] [facility] Medicine Physical (chief complaint) Routine Medical ExamCervicalgiaAsth maOther specified menopausal and postmenopausal disordersRoutine Medical Exam 3 Demetrius Trimble. [address], [place], [place], [address] , [place]. [phone] Family History Family Member Type Diagnosis Age At Onset Mother Problem (finding) Coronary artery disease Sister Problem (finding) pace maker Father Problem (finding) Coronary artery disease Mother Problem (finding) Alive and well Payers Payer name Insurance type Covered republican ID Robert costa(s) [employer] CI [id number] Social History Type Description Quantity Date Captured Comments Alcohol Use Details Caffeine Use Details Unknown Tobacco Use Status Current non-smoker Smoking Status Never smoker Sex Female Vital Signs Date / Time: Height Weight BMI Pulse Rate Blood Pressure Temperature Respiratory Rate Body Surface Area Head Circumference BMI percentile Pulse Ox Inhaled Ox 11:35 AM 64.00 in 167.80 lbs 28.8 0 kg/m eter (2) 78 /min 120/70 mm[Hg] 97.7 F 16 /min 98 21 Chief Complaint And Reason For Visit From encounter dated '08/07/2024 11:31'. sinus1 (chief complaint). Description: pt went to [place] last Monday and she c/o acute onset of sinuscongestion, green sinus drainage, sore throat and headache and cough, sneezing with sob since two days ago Pt does have asthma/allergy and she is seeing book illustrator and she will see pulmonary soon Pt denies any fever. Plan Of Treatment Date Type Action Status Goal Special diet education compl eted Goal Special diet education compl eted Goal Special diet education compl eted Referral Referred To: Jack Antoine [address], [phone] Ordered: Referrals: Jack Antoine. Evaluate and treat ordered Referral Ordered: Gastroenterology (related to GERD with esophagitis, without bleeding) ordered Referral Ordered: Referrals: Gastroenterology. Evaluate and treat ordered Referral Ordered: CHEST X-RAY PA/LAT TWO-VIEWS ordered Referral Ordered: DOPPLER ECHO EXAM, HEART ordered Referral Ordered: CT ABDOMEN&PELVIS W/CONTRAST ordered Referral Ordered: COLONOSCOPY AND BIOPSY ordered Referral Ordered: CERVICAL SPINE XRAY 2 OR 3 VIEWS ordered Referral Ordered: MAMMOGRAM, SCREENING ordered History Of Present Illness Encounter Date Complaint History Of Prese nt Illness sinus1 pt went to [place] monday and she c/o acute onset of sinus congestion, green sinus drainage, sore throat and headache and cough, sneezing with sob since two days ago Pt does have asthma/allergy and she is seeing book illustrator and she will see pulmonary soon Pt denies any fever. GERD1 Pt has chronic G ERD. Pt is on protonix and doing ok Pt denies any nausea, vomiting or abd pain HLP Pt has HLP Pt is on crestor Pt denies any myalgia asthma1 Pt has chronic a sthma. Pt is on trelegy and she sees allergy/soil fertility extension specialist. Pt notices acute worsening sob with wheezing with productive cough for the past week. Pt denies any hemoptysis Pt also c/o sinus congestion. Pt denies any fever, chill Pt has been using albuterol more frequently cough1 Pt c/o productiv e cough with mild sob for 3-4 weeks Pt developed above after COVID and flu vaccine. Pt denies any sore throat Pt has some sinus congestion and hoarseness. Pt does have asthma and she is on trelegy chronically Pt sees asthma/ book illustrator Pt has been trying OTC meds but not helping Pt denies any fever, chill, etc Pt denies any hemoptysis GERD1 Pt has chronic G ERD pt doing ok with protonix Pt had benign EGD HLP Pt has HLP Pt ta kes crestor Pt denies any myalgia cough1 Pt c/o productiv e cough, sob x almost two months. Pt denies any wheezing Pt does have asthma. Pt states that she never wheezes for her asthma, only cough Pt coughs up slightly thicker mucous with yellow color .Pt denies any hemoptysis. Pt went to urgent care 6 weeks ago and she received 10 days of amoxicillin and was told that she has sinusitis but did not help much and she returned 7 days later and she received medrol dose martina which seemed helping slightly Pt went to see ENT two weeks ago and was told that she does not have sinusitis and she was told to see me. Pt currently still coughs a lot, worse at night along with some sob. Pt denies any chest pain Pt denies any calf pain pt also has seasonal allergy and she is getting allergy shot. Pt has been using more albuterol lately. She has low grade temp around 99.6 highest. Pt tested negative for COVID, influenza, and strep at urgent care .Pt had RSV vaccine last year. pt states that she coughs all night. pneumonia1 Pt recently suff ered from pneumonia pt denies any sob or cough or fever or chest pain Pt was treated with abx. Her repeat chest x ray showed resolution of pneumonia leukocytosis1 Pt had leukocyto sis due to pneumonia. Her repeat CBC was normal since pneumonia resolved EKG Pt had abnormal EKG during recent pre op clearance and she denies any chest pain Pt had negative stress echo recently by cardiology cataract1 Pt will undergo cataract surgery soon under monitored sedation .Pt needs surgical clearance. Pt denies any history of adverse reaction to MAC GERD1 pt has reflux es ophagitis. Pt takes protonix and doing ok Pt denies any abd pain HLP Pt has HLP Pt sherine ha and her lipid profile is ok Pt denies any myalgia pneumnoia1 Pt recently had pneumonia .Pt did have sob and cough and she went to ER two weeks ago and she was started on augmentin and Z martina and steroid and she is doing fine now pt denies any sob and cough or fever and chest pain. physical Pt needs annual physical Pt has chronic GERD Pt had benign EGD recently. Esophagitis healed from PPI. Pt denies any GERD or abd pain Pt had colonoscopy done recently which showed tubular adenoma. Pt denies any lower GI issue pt has HLP Pt takes crestor Pt denies any myalgia Pt has allergy and asthma Pt is off breo and spiriva and she is on trelegy now and she is doing ok . Pt also takes zyrtec. Pt denies any sob or wheezing. Pt has HLP Pt takes crestor Pt denies any myalgia.. Pt has asymptomatic left renal stone with mild hematuria. Pt is seeing urology and she will undergo lithotripsy tomorrow Pt denies any flank pain or urinary symptoms. Pt denies any other complaints COVID Pt 's te sted positive for COVD yesterday and he started to have symptoms 2 days ago. he did not practice self isolation and patient has been in close contact with her until today. Pt currently does not have any symptoms. She denies any fever, sob, cough, fatigue, sore throat, headache, etc. Pt is fully vaccinated for COVID and boosted. She is concerned about possible close contact and pending infection with COVID and also the . HLP Pt has HLP Pt sherine fowler crestor Pt denies any myalgia asthma1 Pt has asthma .P t is on inhalers and she started tezspire recently by disability specialist. Pt had high resolution chest CT which was completely clear two months ago. hematuria1 pt denies any ur inary symptoms .Pt saw urology and she had a small nonobstructive renal stone. Pt denies any pain GERD pt has chronic G ERD. Pt takes protonix daily and doing ok Pt denies any abd pain, nausea, vomiting. Pt supposes to do EGD and colonoscopy past summer but she missed all her katharine and she wants to do EGD and colonoscopy next summer. Pt denies any lower GI issue Pt has tubular adenoma. low KCL Pt had low kcl a nd low calcium. Repeat kcl ok Calcium is borderline low hematuria1 Pt had mild dylon turia during lab work from ER recently .Pt states that sometimes she notices some spotting when she takes abx. Pt states that she no longer has any spotting. Pt pneumonia1 Pt has right lob e pneumonia last month. NOT COVID related .Pt took doxy, amoxicillin and prednisone and symptoms resolved . pt denies any chest pain, sob or cough. or hemoptysis. physical Pt needs annua p hysical pt has chronic GERD and Gi polyp pt is on protonix Pt denies any abd pain or GERd or nausea. Pt had EGd done early this year which showed esophagitis with yeast. Colonoscopy showed tubular adenoma Pt is on spiriva and breo which is the reason for armando on the EGD. Pt was treated with diflucan by GI. Pt has asthma and she sees pulmonary and she is on spiriva and breo and she rarely uses albuterol. pt takes zyrtec also. Pt also has osteopenia .Pt has not had repeat bone density since 2018 ,Pt denies any other complaints Pt has HLP Pt takes crestor and she denies any myalgia pneumonia1 [place] and she developed acute Gastroenteritis with persistent vomiting and diarrhea and shortly afterward she developed sob and she was diagnosed with pneumonia. Pt does have chronic GERd. Pt takes protonix and her symptoms usually are well controlled. pt had EGD done 2018 which showed reflux esophagitis. She followed up with her book illustrator who is concerned about aspiration pneumonia and recommended her to get repeat EGD. Pt took augmentin and Z martina and currently her pneumonia symptoms resolved Pt denies any fever, chill, sob or cough or chest pain or hemoptysis tubular adenoma1 Pt has tubular adenoma on colonoscopy from 2018 by local GI and she was referred to [facility] for resection of the polyp but pt has been noncompliant and she still has not done that yet. Pt now wants a referral to [facility] for EGD and colonoscopy. Pt tried to call [facility] but is not getting anywhere. Pt denies any Gi bleeding Physical Pt needs annual physical Pt has HLP. Pt takes crestor and her lipid profile is ok now pt denies any myalgia. Pt has high glucose. Pt denies any polyuria, polydipsia. Pt has low calcium. Pt denies any bone pain. Pt has chronic GERD Pt takes protonix daily pt failed pepcid Pt has daily GERD with our protonix. Pt has COPD/asthma. Pt takes spiriva, breo and zyrtec. Pt denies any new complaints GERD1 Pt has esophagea l ulcer with GERD Pt denies any abd pain or GERD Pt denies any nausea, Pt denies any blood in stool HLP Pt has HLP Pt ball s been taking crestor 10 mg but caused some GI issue Pt feels more indigestion with some non bloody diarrhea. Pt is still on 10 mg crestor Pt denies any myalgia osteopenia1 Pt has osteopeni a, which is slightly worse currently compare to two years ago. Pt takes daily calcium and D. Pt is working on weight bearing exercise mumur1 Pt has cardiac m urmur Pt denies any chest pain or sob HLP Pt has HLP Pt ac tually has HLP for a while Pt failed diet and exercise. colon polyp1 Pt has colon gold yp and GERD ,Pt is on protonix daily pt failed pepcid. Pt denies any GERD or abd pain. Pt does have gastric ulcer. Pt denies any bleeding GERD1 Pt has EGD done early this year which showed esophagitis with ulcer pt has been on protonix and she has not had any GERD or abdominal discomfort since taking protonix. hematuria1 Pt had hematuria . Pt denies any UTI symptoms. her CT was ok. Repeat UA and cytology were negative osteopenia1 Pt has osteopeni a. Pt takes calcium and vitamin D and does weight bearing exercise. GERD1 Pt has mild GERD and some burning around stomach. Pt denies any rectal bleeding. Pt denies any weight loss. Pt denies any dysphagia. Pt has been taking zantac bID but her GI switched her to prilosec 20 mg daily, which she started this morning. hematuria1 Pt has hematuria . pt denies any UTI symptoms pt denies any trauma manager bleeding.. Pt denies any flank pain folate1 Pt has low folat e. Pt does eat good amount of green vege HLP Pt has borderlin e HLP. Pt is eating very healthy Physical Pt needs annual physical. Pt has chronic recurrent sinus infection, sinus allergy and also bronchitis. Pt is seeing pulmonary and also book illustrator and she has diagnosis of asthma. Pt was never diagnosed with COPD. Pt takes spiriva and breo daily per her book illustrator. Pt has very mild GERD symptoms occasionally and she has intermittent constipation and diarrhea without blood chronically. Pt denies any abdominal pain. Pt had colonoscopy 2013 which showed polyp which she supposes to repeat colonoscopy again in 2014 but she never did Pt denies any weight loss. Pt denies any stomach bloating or pain Instructions Date Instruction Additional Infor mation Increase physical activity Relat ed to Hematuria Special diet education Related t o Body mass index (BMI) 26.0-26.9, adult Special diet education Related t o Body mass index (BMI) 26.0-26.9, adult Elevate head of bed prior to sle ep. Related to GERD w/ esophagitis Eat smaller meals, n o eating three hours prior to bedtime. Related to GERD w/ esophagitis Avoid provocative fo ods: citrus, alcohol, coffee, chocolate, mints. Related to GERD w/ esophagitis Special diet education Related t o Body mass index (BMI) 26.0-26.9, adult Increase physical activity Relat ed to Encounter for general adult medical exam w abnormal findings Increase physical activity Relat ed to Encounter for general adult medical exam w abnormal findings Physical activity counseling Rel ated to Dietary surveillance counseling Decrease caloric intake Related to Dietary surveillance counseling Assessments Type Assessment Date assessment Acute sinusitis assessment Mild intermittent asthma, uncomp licated Mental Status Date Cognitive Assessment Orientation - [place] ed to time, place, person, situation.
--- NOTE | 2024-10-18 14:11 | WPDPFTINT ---
PFT Procedure Performed PFT Procedure Performed Spirometry with Pre/Post Bronchodilator Plethysmography (Lung Vol) Diffusing Cap (DLCO) Flow Vol Loop PFT Interpretation This is a pulmonary function test with pre and post-bronchodilator spirometry, plethysmography and diffusing capacity. The test was performed and results interpreted in accordance with the 2019 and 2005 ATS/ERS Task Force guidelines respectively using the Global Lung Function Initiative-2012 reference equations. Patient demonstrated good effort and cooperation. Reproducibility criteria were met. The quality of the pre bronchodilator spirometry maneuver was Grade A and post bronchodilator spirometry maneuver was Grade A. Findings: Spirometry: The contour the inspiratory and expiratory flow tracing are normal. The pre bronchodilator FVC is 2.16 L, 78% predicted. The pre bronchodilator FEV1 is 1.87 L, 88% predicted. The pre bronchodilator FEV1: FVC ratio is 87%. The post bronchodilator FVC is 2.15 L, representing no change. The post bronchodilator FEV1 is 1.86 L, representing 1% decrease. The post bronchodilator FEV1: FVC ratio is 86%. Plethysmography: The total lung capacity is 3.06 L, 60% predicted. The functional residual capacity is 1.39 L, 48% predicted. The residual volume is 0.84 L, 37% predicted. Diffusing capacity: The diffusing capacity unadjusted for hemoglobin and carboxyhemoglobin is 12.6, 62% predicted. The diffusing capacity adjusted for alveolar volume is 4.69, 111% predicted. Impression: There is a mild ventilatory abnormality with a normal FEV1. The spirometry is normal without evidence of an obstructive abnormality. There is no significant improvement after inhaling a single dose of albuterol. The diffusing capacity unadjusted for hemoglobin and carboxyhemoglobin is mildly decreased and normalizes when adjusted for alveolar volume. There are no prior studies for comparison
== END 2024-10-17 12:41 | disposition home or self-care (01) ==
LOC: ANHPFT 12:45
PROVIDERS: PCP Emergency Medicine; Visit Provider Physician Assistant
DX: R94.2 Abnormal results of pulmonary function studies (principal); R06.09 Other forms of dyspnea
CPT/HCPCS: 94060; 94726; 94729